=== PATIENT | female | born 1930 | race Caucasian/White ===

== ENCOUNTER 2017-09-05 12:30 | Outpatient (CLI) | payer MEDICARE, OTHER ==
[2017-09-05 13:24] LABS: #Basophils 0.1 thou/uL (0.0-0.2); #Eosinphils 0.2 thou/uL (0.0-0.7); #Lymphocytes 1.5 thou/uL (1.20-3.40); #Monocytes 0.5 thou/uL (0.11-0.59); #Neutrophils 3.2 thou/uL (1.40-6.50); %Basophils 1.2 % (0.0-1.0); %Eosinophils 3.9 % (0.0-10.0); %Lymphocytes 26.6 % (21.0-51.0); %Monocytes 8.7 % (0.0-10.0); Hematocrit 45.9 % (36.0-47.0); Red Blood Cell (RBC) Count 4.99 mill/uL (4.20-5.40); White Blood Cell (WBC) Count 5.4 thou/uL (4.8-10.8)
[2017-09-05 13:51] LABS: Anion Gap 14 mmol/L (10-20); BUN (Urea Nitrogen) 13 mg/dL (9.8-20.1); Calc. Creatinine Clearance 0 mL/min (70-130); Calcium 9.2 mg/dL (7.8-10.44); Carbon Dioxide 27 mmol/L (23-31); Chloride 102 mmol/L (98-107); Estimated GFR-MDRD 53
--- NOTE | 2017-09-05 15:29 | EKG ---
Test Reason : Blood Pressure : / mmHG Vent. Rate : 057 BPM Atrial Rate : 057 BPM P-R Int : 142 ms QRS Dur : 088 ms QT Int : 484 ms P-R-T Axes : 039 142 -38 degrees QTc Int : 471 ms Sinus bradycardia Right axis deviation T wave abnormality, consider inferior ischemia T wave abnormality, consider anterolateral ischemia Prolonged QT Abnormal ECG No previous ECGs available Confirmed by DR. Xuan BROOKS ([id number]) on 09/05/2017 3:29:39 PM Referred By: LOPEZ Confirmed By:DR. Xuan BROOKS
--- NOTE | 2017-09-05 15:51 | RAD ---
TWO VIEWS CHEST: 09/05/17 Preoperative chest radiograph. PA and lateral views of the chest is obtained. Marked cardiomegaly seen. the cardiothoracic ratio measures approximately 17.9/28.2 cm. The lungs are well aerated. Ectasia of the aorta is seen. IMPRESSION: Cardiomegaly. POS: [facility]
== END 2017-09-05 12:31 | disposition home or self-care (01) ==
LOC: LABBT 12:30
PROVIDERS: ATTEND Specialist
DX: Z01.818 Encounter for other preprocedural examination (principal); R59.0 Localized enlarged lymph nodes; I51.7 Cardiomegaly
CPT/HCPCS: 71020; 80048; 85025; 93005; 93010

== ENCOUNTER 2017-09-10 09:07 | Day surgery (SDC) | payer MEDICARE, OTHER ==
--- NOTE | 2017-09-04 21:17 | HP ---
HISTORY OF PRESENT ILLNESS: Lorena Martinez is an 87-year-old female presenting with left groin lymp hadenopathy about a 3 cm node. The patient denies any fever, night sweats or weight loss. 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 Zapata during catheterization. Plan is to excise th is lymphnode for biopsy as an outpatient, IV sedation, and local anesthesia. She is followed by Dr. Keita and has a history of abnormal nuclear medicine stress test, but echocardiogram at the Dr. Mumtaz palacio's office on 07/31/2017 noting this grade 1 diastolic dysfunction, LV, ejection fraction 60% to 65%, moderate right RV dilatation, mild tricuspid, mitral valve, aortic valve regurgitation. She mccarthy s a moderate size pericardial effusion without tamponade physiology. There is no change from previo us exam. ALLERGIES: None. TOBACCO: None. ALCOHOL: None. MEDICATIONS: Vitamin B12, aspirin 81 mg a day, Lasix 40 mg a day, losartan potassium 50 mg a day, m etoprolol 50 mg extended release daily, Aricept at bedtime, vitamin capsule orally. PAST SURGICAL HISTORY: Cataracts, foot surgery. SOCIAL HISTORY: The patient's daughter lives part-time with her, she is independently ambulatory. She does not drive. REVIEW OF SYSTEMS: Ten-point noncontributory. She denies ever having had a colonoscopy. She denie s any history of cardiac problems. PHYSICAL EXAMINATION: VITAL SIGNS: Weight 144 pounds, 60 inches tall, blood pressure 148/66, 56 heart rate, temperature 9 6.8 degrees. HEAD, EYES, EARS, NOSE AND THROAT: Unremarkable. LUNGS: Clear to auscultation. CARDIAC: Regular rate and rhythm without murmur or gallop. ABDOMEN: Soft, nontender, no lymphadenopathy. Neck, axilla, or right groin or left groin reveals a 3-1/2 cm firm node. This has not changed on standing Valsalva. ASSESSMENT AND PLAN: Left groin, no plan, excisional biopsy for pathology identification. She yoko es experiencing symptoms of weight loss, night sweats or fever and appetite has been fairly good. M obility is good.
[2017-09-05 13:52] VITALS: BMI 26.8
[2017-09-10] MEDS ORDERED: CEFAZOLIN/Water 2 GM/20 ML SYRINGE ONE (10:47)
[2017-09-10] MEDS ORDERED: Bupivacaine PF 0.5% 30 ML VIAL ONE (12:06)
[2017-09-10] MEDS ORDERED: Lidocaine 2% w/Epinephrine 1:200K 20 ML VIAL ONE (12:06)
[2017-09-10] MEDS ORDERED: Fentanyl 100 MCG/2 ML VIAL ONE (12:22)
[2017-09-10] MEDS ORDERED: Propofol 200 MG/20 ML VIAL ONE (12:30)
--- NOTE | 2017-09-10 14:49 | OP ---
PREOPERATIVE DIAGNOSIS: Left groin lymphadenopathy. POSTOPERATIVE DIAGNOSIS: Incarcerated left femoral hernia with omentum. SURGEON: Stephen Richmond M.D. ANESTHESIA: TIVA. Local 0.5% Marcaine, 30 mL mixed with 1% Xylocaine with epinephrine, 35 mL mixtu re used. PROCEDURE: Patient taken to the operating room where under intravenous sedation, groin, lower abdom en and thigh prepared with ChloraPrep, draped in routine fashion. Local anesthetic infiltrated into skin and subcutaneous tissue about the operative site. Incision made over the mass and carried adrian n through the skin and subcutaneous tissue and there was appreciated. This was incarcerated femoral hernia. This was dissected free and hernia sac identified, opened and redundant omentum excised wi th the cautery. Hernia sac closed, highly ligated with 0 Nurolon pursestring suture and to the stum p of the hernia sac, a hernia plug, PerFix light plug applied and secured with 0 Nurolon suture. Re duced into the space. Fascia approximated the pubis with interrupted sutures of 0 Nurolon. Good he mostasis obtained. Subcutaneous tissues approximated with 3-0 Monocryl, skin with subdermal 4-0 Mon ocryl and DermaGlue applied.
== END 2017-09-10 14:40 | disposition home or self-care (01) ==
LOC: SDC 09:07
PROVIDERS: ATTEND Specialist
PROC: 0YQ80ZZ Repair Left Femoral Region, Open Approach (ICD-10-PCS; principal; 2017-09-10)
DX: K41.30 Unilateral femoral hernia, with obstruction, without gangrene, not specified as recurrent (principal); I08.3 Combined rheumatic disorders of mitral, aortic and tricuspid valves; I31.3 Pericardial effusion (noninflammatory); Z79.82 Long term (current) use of aspirin; Z79.899 Other long term (current) drug therapy; Z98.49 Cataract extraction status, unspecified eye; Z98.890 Other specified postprocedural states
CPT/HCPCS: 49553; C1781; J2704; J3010; S0020

== ENCOUNTER 2017-10-27 09:15 | Emergency (ER) | payer MEDICARE, OTHER ==
--- NOTE | 2017-10-27 11:43 | RAD ---
TWO VIEWS OF THE RIGHT HIP: DATE: 10/27/17. COMPARISON: None. HISTORY: Low back pain and right hip pain/thigh pain. No reported history of trauma. FINDINGS: There is mild superior joint space narrowing involving the right hip. There is no displaced fracture or evidence of dislocation seen. IMPRESSION: No acute osseous abnormality. POS: [facility]
[2017-10-27 12:26] LABS: Hematocrit 42.7 % (36.0-47.0); Mean Platelet Volume 7.7 fL (7.4-10.4); Red Blood Cell (RBC) Count 4.86 mill/uL (4.20-5.40); White Blood Cell (WBC) Count 7.3 thou/uL (4.8-10.8)
[2017-10-27 12:38] LABS: ALT (SGPT) 13 U/L (8-55); AST (SGOT) 30 U/L (5-34); Alkaline Phosphatase 52 U/L (40-150); Anion Gap 16 mmol/L (10-20); BUN (Urea Nitrogen) 18 mg/dL (9.8-20.1); Calc. Creatinine Clearance 0 mL/min (70-130); Calcium 7.6 mg/dL (7.8-10.44); Carbon Dioxide 20 mmol/L (23-31); Chloride 98 mmol/L (98-107); Estimated GFR-MDRD 59; Globulin 3.2 g/dL (2.4-3.5); Protein, Total 6.5 g/dL (6.0-8.3)
[2017-10-27 12:55] LABS: Band 38 % (5-11); Metamyelocyte 11 % (0-0); Myelocyte 4 % (0-0); Neutrophil 37 % (42-75)
[2017-10-27 14:05] LABS: Bilirubin Small (Negative); Blood, Urine Trace (Negative); Glucose, Urine (Dipstick) Negative (Negative); Ketone, Urine 15 mg/dL (Negative); Nitrite Negative (Negative); Protein, Urine (Dipstick) 100 mg/dL (Neg-Trace)
[2017-10-27 14:13] LABS: Bacteria/HPF None Seen HPF (None Seen); Squamous Epithelial 0-3 HPF (0-3)
--- NOTE | 2017-10-27 14:17 | CT ---
CT ARTERIOGRAM CHEST WITH IV CONTRAST AND 3D MIP IMAGING CT ARTERIOGRAM ABDOMEN WITH IV CONTRAST AND 3D MIP IMAGING: HISTORY: Chest and back pain. FINDINGS: There is good contrast opacification of the aorta with normal branching of the great vessels. Scatte red arterial calcifications apparent. No evidence of dissection. Fusiform ectasia of the lower abdo gurwinder aorta is present without aneurysmal dilatation apparent. Visceral arteries are patent. Bibasilar parenchymal infiltrates include alveolar and interstitial components. Heart is enlarged wi th pericardial fluid apparent. Lobular cysts are present throughout the liver parenchyma. There are degenerative changes throughout the lumbar spine. IMPRESSION: 1. Atherosclerosis. No evidence of aortic dissection or aneurysm. 2. Dense bibasilar parenchymal lung infiltrates. Clinical correlation regarding other signs and sym ptoms of bibasilar pneumonitis is required. 3. Cardiomegaly with pleural effusion. POS: [facility]
[2017-10-27 14:30] LABS: Hyaline Casts/LPF 4-6 HYALINE CAST LPF (0-3 Hyaline); Transitional Epithelial 0-3 HPF (0-3)
[2017-10-27] MEDS ORDERED: ISOVUE-370 76%-LOCM 1 ML ONE (17:04)
--- NOTE | 2017-11-26 14:41 | EKG ---
Test Reason : Blood Pressure : / mmHG Vent. Rate : 073 BPM Atrial Rate : 073 BPM P-R Int : 134 ms QRS Dur : 088 ms QT Int : 464 ms P-R-T Axes : 048 160 -33 degrees QTc Int : 511 ms Normal sinus rhythm Possible Left atrial enlargement Right axis deviation Right ventricular hypertrophy T wave abnormality, consider inferior ischemia T wave abnormality, consider anterior ischemia Prolonged QT Abnormal ECG No changes FROM 06-FEB-2017 Confirmed by AMANDA HAMMOND, NGUYEN ([id number]), editor dictionary CHANDRA GRUBER ([id number]) on 11/26/2017 2:40:31 PM Referred By: Confirmed By:NGUYEN PATEL MD
== END 2017-10-27 15:20 | disposition home or self-care (01) ==
LOC: ERS 09:15
DX: N39.0 Urinary tract infection, site not specified (principal); G47.30 Sleep apnea, unspecified; I11.0 Hypertensive heart disease with heart failure; E78.5 Hyperlipidemia, unspecified; I50.9 Heart failure, unspecified; Z79.82 Long term (current) use of aspirin; Z79.899 Other long term (current) drug therapy
CPT/HCPCS: 51701; 71275; 80053; 81003; 81015; 85025; 93005; 94760; 96374; A4353; J0696

== ENCOUNTER 2017-12-02 15:08 | Outpatient (CLI) | payer MEDICARE, OTHER | END 2017-12-02 15:09 | disposition home or self-care (01) | LOC: BICRAD 15:08 | PROVIDERS: ATTEND Internal Medicine Cardiovascular Disease | DX: J84.10 Pulmonary fibrosis, unspecified (principal); I31.3 Pericardial effusion (noninflammatory); I50.9 Heart failure, unspecified | CPT/HCPCS: 71046 ==

== ENCOUNTER 2017-12-24 08:00 | Inpatient (IN) | payer MEDICARE, OTHER ==
[2017-12-24 08:27] LABS: #Monocytes 0.3 thou/uL (0.11-0.59); #Neutrophils 3.8 thou/uL (1.40-6.50); %Basophils 0.5 % (0.0-1.0); %Eosinophils 0.8 % (0.0-10.0); %Lymphocytes 18.7 % (21.0-51.0); Hemoglobin 13.2 g/dL (12.0-16.0); Mean Corpuscular Hemoglobin 28.3 pg (27.0-31.0); Mean Corpuscular Volume 88.3 fl (81.0-99.0); Mean Platelet Volume 8.2 fL (7.4-10.4); Platelet Count 194 thou/uL (130-400); RBC Distribution Width 16.4 % (11.5-14.5); Red Blood Cell (RBC) Count 4.67 mill/uL (4.20-5.40); White Blood Cell (WBC) Count 5.1 thou/uL (4.8-10.8)
--- NOTE | 2017-12-24 08:33 | RAD ---
1 VIEW CHEST: Date: 12/24/17 COMPARISON: None. HISTORY: Pain. FINDINGS: There is cardiomegaly and atherosclerosis of aorta. Pulmonary vessels are upper normal. There are bib asilar pleural and parenchymal changes. Adequate aeration of the upper lungs. No pneumothorax. IMPRESSION: 1. Cardiomegaly. 2. Bibasilar pleural and parenchymal changes. 3. Possible congestive heart failure. Correlate clinically. 4. Atherosclerosis. POS: [facility]
[2017-12-24 08:45] LABS: ALT (SGPT) 53 U/L (8-55); AST (SGOT) 46 U/L (5-34); Albumin 3.8 g/dL (3.4-4.8); Alkaline Phosphatase 78 U/L (40-150); Anion Gap 12 mmol/L (10-20); BUN (Urea Nitrogen) 13 mg/dL (9.8-20.1); Bilirubin, Total 1.1 mg/dL (0.2-1.2); CK (CPK) 45 U/L (29-168); Calc. Creatinine Clearance 0 mL/min (70-130); Calcium 9.1 mg/dL (7.8-10.44); Carbon Dioxide 23 mmol/L (23-31); Chloride 107 mmol/L (98-107); Estimated GFR-MDRD 63; Globulin 3.5 g/dL (2.4-3.5); Glucose 164 mg/dL (83-110); Potassium 3.5 mmol/L (3.5-5.1); Protein, Total 7.3 g/dL (6.0-8.3); Sodium 138 mmol/L (136-145)
[2017-12-24 08:50] LABS: CKMB 2.9 ng/mL (0-6.6)
--- NOTE | 2017-12-24 08:57 | CT ---
CT BRAIN WITHOUT CONTRAST: Date: 12/24/17 HISTORY: Altered mental status. FINDINGS: Comparison made with exam of 02/13/17. Changes of cortical atrophy, chronic small vessel ischemic disease, and old lacunar infarction in the brainstem are again seen. The soft tissue density in the region of the right cavernous sinus which m ay either represent a mass or aneurysm is stable. Carotid atherosclerosis again noted. No evidence of acute infarct, hemorrhage, midline shift, or abnormal extra-axial fluid collections se en. The ventricular size is appropriate and the basilar cisterns are patent. The bony calvarium is in tact. There is mucosal disease in the left maxillary sinus. IMPRESSION: 1. Stable intracranial findings without evidence of acute intracranial process. 2. 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 This is stable since 02/13/17. E valuation with MRI (with and without IV contrast) would be helpful. 3. Cortical atrophy. 4. Chronic small vessel ischemic disease. 5. 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 POS: [facility]
--- NOTE | 2017-12-24 10:59 | CT ---
CT ANGIOGRAM OF THE CHEST WITH IV CONTRAST AND 3D POSTPROCESSING CT ANGIOGRAM OF THE ABDOMEN WITH IV CONTRAST AND 3D POSTPROCESSING: Date: 12/24/17 HISTORY: Right-sided weakness, upper extremity greater than lower extremity. Concern for aortic dissection. FINDINGS: Comparison made with exam dated 11/06/17. The thoracoabdominal aorta is well opacified without evidence of aneurysm or dissection. Ectasia of t he aorta is again seen. There is good flow in the celiac axis, SMA, ANTHONY, and both renal arteries. The pulmonary arterial vasculature is well opacified without filling defects to suggest pulmonary emboli sm. Cardiomegaly and pericardial effusions are redemonstrated. Bibasilar infiltrates are again seen. No free air or free fluid is seen in the abdomen. Cysts in the liver and right kidney are again seen. There are degenerative changes in the spine. IMPRESSION: 1. No evidence of aortic dissection or pulmonary embolism. 2. Cardiomegaly with pericardial effusion. 3. Bibasilar parenchymal lung infiltrates. 4. Liver and right renal cysts. POS: [facility]
[2017-12-24] MEDS ORDERED: Enoxaparin Sodium 60 MG/0.6 ML SYRINGE ONE (11:23)
[2017-12-24] MEDS ORDERED: Senokot 8.6 MG TAB PO PRN (12:37)
[2017-12-24] MEDS ORDERED: Guaifenesin DM 100-10/5 ML UDCUP PO PRN (12:37)
[2017-12-24] MEDS ORDERED: Acetaminophen 325 MG TAB PO PRN (12:37)
[2017-12-24 12:49] LABS: Troponin I 2.052 ng/mL (< 0.028)
[2017-12-24 12:53] LABS: EliA RAS New Method **** NEW METHOD ****
[2017-12-24 13:39] LABS: Syphilis Antibody Nonreactive (Nonreactive); Syphilis Antibody Index 0.12 S/CO (<1.00 Non-Reactive)
--- NOTE | 2017-12-24 14:34 | HP ---
REASON FOR ADMISSION: Right hemiparesis, non-ST elevation LA. HISTORY OF PRESENTING ILLNESS: The patient gives history of right upper extremity weakness, which started out 3 days back. This has been progressively getting worse. From last night, her daughter was with her. She noticed that she could not hold her coffee cup this morning. She was also wobbly while walking. She could not put spoon in her cup to mix her sugar and cream. They thought she was having a stroke and EMS was summoned and brought here. The patient was a stroke alert in the ER. Incidentally, her lab revealed a troponin of 2.0 and a CK-MB of 2.9. She has no complaints of chest pain, palpitations, PND or orthopnea. She normally ambulates using a walker inside the house. She has regular followups with Dr. Keita and had one 2 weeks back as well. She has been progressively putting on fluid in her legs and was advised to take double the dose of her Lasix from last [address] Keita. The family is not aware if she has had any cardiac workup including a stress test or angiogram. She has been following up with Dr. Keita from last one year. PAST MEDICAL AND SURGICAL HISTORY: Hypertension; dyslipidemia; sleep apnea; history of carotid aneurysm, diagnosed in 04/2017 via angiogram, done by Dr. Adeel Moreno. This showed a large right internal carotid artery terminus region aneurysm, which measures approximately 12 mm along its greatest length. She has not had further follow up with Dr. Zapata since then. She has had history of pericardial effusion in the past, hernia repair and dementia. CURRENT MEDICATIONS: Patient is on aspirin 81 mg p.o. daily, vitamin B12 5000 mcg p.o. daily, donepezil 5 mg p.o. daily, Lasix 20 mg daily, losartan 50 mg daily, melatonin 3 mg p.o. at bedtime, Lopressor 50 mg, Toprol-XL 50 mg p.o. daily and fish oil 1 capsule daily. ALLERGIES: No known drug allergies. PERSONAL HISTORY: Does not abuse alcohol or drugs. No history of smoking. The patient lives by herself and her daughter stays with her four nights in a week. FAMILY HISTORY: Mother of leukemia at the age of 65 years. Father in his 80s and has had history of LA. REVIEW OF SYSTEMS: The following complete review of systems was negative, unless otherwise mentioned in the HPI or below: Constitutional: Weight loss or gain, ability to conduct usual activities. Skin: Rash, itching. Eyes: Double vision, pain. ENT/Mouth: Nose bleeding, neck stiffness, pain, tenderness. Cardiovascular: Palpitations, dyspnea on exertion, orthopnea. Respiratory: Shortness of breath, wheezing, cough, hemoptysis, fever or night sweats. Gastrointestinal: Poor appetite, abdominal pain, heartburn, nausea, vomiting, constipation, or diarrhea. Genitourinary: Urgency, frequency, dysuria, nocturia. Musculoskeletal: Pain, swelling. Neurologic/Psychiatric: Anxiety, depression. Allergy/Immunologic: Skin rash, bleeding tendency. PHYSICAL EXAMINATION: GENERAL: The patient is an 87-year-old female who is currently not in any acute distress. VITAL SIGNS: Blood pressure 186/70, pulse 60 per minute, respiratory rate 20 per minute, temperature 98.5 degrees Fahrenheit and saturating 92% on room air. NECK: Supple. No elevated JVD. HEENT: Eyes; extraocular muscles intact. Pupils reacting to light. Oral cavity; mucous membranes are moist. No exudates or congestion. CARDIOVASCULAR SYSTEM: S1 and S2 heard. Regular rhythm. RESPIRATORY SYSTEM: Air entry 1+ bilateral. Scattered rhonchi plus bilateral. ABDOMEN: Soft, bowel sounds heard. No tenderness, rigidity or guarding. EXTREMITIES: There is 1+ peripheral edema, no calf tenderness. VASCULAR SYSTEM: Peripheral pulses 1+ bilateral. No ischemic ulcerations or gangrene. CENTRAL NERVOUS SYSTEM: Cranial nerves are grossly intact. Patient is alert, awake and oriented x3. Motor system strength is 4/5 in right upper and lower extremity when compared to left. The patient is right handed. The patient also has some ataxia with pronator drift in her right upper extremity. Babinski is downgoing. Reflexes are 2+ bilateral. Gait was not tested. PSYCHIATRIC SYSTEM: The patient is a bit anxious, otherwise no hallucinations or delusions. LABORATORY AND X-RAY FINDINGS: Troponin I is 2.0. CK-MB 2.9. CT brain without contrast done shows no acute intracranial process. There is a question of mass versus aneurysm in the region of the right cavernous sinus, cortical atrophy and chronic small vessel ischemic changes seen and old lacunar infarct in the brain stem. CT dissection protocol done shows no evidence of dissection or pulmonary embolism. There was cardiomegaly with pericardial effusion. Chest x-ray done shows cardiomegaly with bibasilar pleural and parenchymal changes. EKG done shows sinus rhythm at 61 beats per minute. There are T inversions seen in anterolateral and inferior wall leads. This is unchanged when compared to prior EKG done in 10/2017. CLINICAL IMPRESSION AND PLAN: The patient will be admitted to stroke unit/ telemetry for possible right hemiparesis with ataxia. Patient also has known history of carotid aneurysm on the right side measuring up to 1 cm and has not had any follow up with Dr. Zapata since being diagnosed in 04/2017. She also has a troponin of 2 and likely non-ST elevation myocardial infarction. It is unclear if she has had a stress test in the past. As patient is on aspirin, we will place her on Plavix for now and BNP will be obtained as well. Patient has a known history of chronic pulmonary fibrosis based on CT scan done in 04/2016. She has had follow ups with Dr. Ibanez for the same. She will be on nitro paste half-inch q.8 hourly. A small dose of Crestor will be added. We will continue her Cozaar as before and a small dose of Lopressor at 25 mg twice daily. We will not give her full dose Lovenox in view of her current symptoms of CVA so as to not have a francisca-infarct bleed. We will consult Dr. Sheyla Mott for Neurology and Dr. Keita for Cardiology. MRI without contrast will be obtained and a CT angio of the neck and brain will be obtained as well. If needed, we will consult Dr. Zapata for intervention Neurosurgery. We will continue to closely monitor her on the stroke unit. I have discussed code status with her and she would like to be a FULL CODE for now. MTDD
[2017-12-24 16:06] VITALS: BMI 27.0
[2017-12-24 16:41] LABS: Critical Call Chem Troponin I RESULT DECREASING; Troponin I 1.806 ng/mL (< 0.028)
[2017-12-24] MEDS ORDERED: ISOVUE-370 76%-LOCM 1 ML ONE (16:53)
[2017-12-24] MEDS: Nitroglycerin 2% Ointment 1 INCH/1 GM Packet TOP SCH ×2 (18:23→21:11)
--- NOTE | 2017-12-24 19:27 | CON ---
DATE OF CONSULTATION: 12/24/2017 INDICATION FOR CONSULTATION: This is an 87-year-old female with abnormal cardiac enzymes with a hist ory of congestive heart failure, pulmonary fibrosis, and pericardial effusion. We were asked to see her due to the abnormal cardiac enzymes. HISTORY OF PRESENT ILLNESS: She is a very pleasant 87-year-old female, who has been complaining of s ome right upper extremity weakness over the last several days which has become worse and daughter not iced that she was unable to even be able to eat or mixing picker tender a coffee cup and she had been somewhat sha ky. She had called the daughter at home when she was not feeling very well. The daughter was concer bernardino and felt perhaps she was having a CVA and brought her to the emergency room. Since being in the emergency room, her cardiac enzymes were evaluated and she was found to have abnormal cardiac enzymes with a troponin I originally which was 2.05, at 8 o'clock this morning it was repeated and was found to be the same thing 2.05, and about 4 o'clock this afternoon it is decreased down to 1.8. Her MB w as 2.9. Her BNP was significantly elevated at 7155. 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 She had a recent echocardiogram according to the patient's family about 2 weeks in the office and I will try to find that echocardiogram. I did not see one in the hospital records. She denied any chest pain. Since being in the hospital, her right arm has improved. When I see her at this time, s he is actually eating from her hospital tray and using the right hand. She denies any chest pain. S he has had a CT scan I believe since being admitted here and there is no indication that she has had any new findings. I believe the patient is being sent down for an MRI. This was acute on the CT sca n, but she did have some what appeared to be a mass versus an aneurysm in the right cavernous sinus w hich has been stable. She has had some atrophy. She has small vessel disease and she has had an old lacunar infarct, but there were no apparent acute findings on the evaluation. PAST MEDICAL HISTORY: Significant for history of carotid aneurysm on the right side. There has been no intervention performed. She has a pericardial effusion. She has hypertension, sleep apnea, and dyslipidemia. She has a history of peptic ulcer disease, osteoporosis. ALLERGIES: None. MEDICATIONS PRIOR TO ADMISSION: Included vitamins, aspirin 81 mg a day, furosemide 40 mg b.i.d., chaim nazepam, donepezil 5 mg 1 q.p.m., fish oil, and vitamin B12. She is also taking losartan 50 mg a day , Lopressor 50 mg daily. SOCIAL HISTORY: She has no history of alcohol or tobacco abuse. She lives by herself, but her daugh keenan lives close by and takes support on daily basis and stays with her several times during the week. FAMILY HISTORY: Noncontributory for any early heart disease. Her father did have a myocardial infar ction in his 80s. Her mother I believe had some type of leukemia. REVIEW OF SYSTEMS: A 12-point review of systems is unremarkable except for the right upper extremity weakness and recent seemingly some confusion, but is minimal. The patient still lives by herself. PHYSICAL EXAMINATION: GENERAL: Reveals an elderly female who is sitting on the side of the bed. She is eating from her ho spital tray. VITAL SIGNS: Her blood pressure is 189/86, heart rate is 54. She is afebrile, respiratory rate is 1 8. HEENT: Reveals the head to be normocephalic and atraumatic. Carotid pulses are present. She has no significant bruits. CHEST: Has bibasilar at least in the lower 1/3rd of the lung rosas, very coarse dry rales which are compatible with her pulmonary fibrosis. CARDIOVASCULAR: Exam reveals a regular rate and rhythm at this time. I did not hear any significant murmurs, heaves, thrills, bruits, or rubs. ABDOMEN: Soft and nontender. Positive bowel sounds are present. EXTREMITIES: Showed no clubbing, cyanosis, or edema. Pedal pulses are present. NEUROLOGIC: The patient does have some right upper extremity weakness, but is still able to grasp th e fork and she has enough stability to get it to her mouth and features of using her right hand. SKIN: Warm and dry. LABORATORY DATA: As noted above shows some slight abnormalities with the CPK-MB. If she has had [place] e type of neurological event, this may be the reason why this is elevated. IMPRESSION: 1. Abnormal cardiac enzymes which could possibly be due to a non-ST segment elevation myocardial inf arction, but with negative MB. This may be due to neurological event with elevation of the troponin I slightly. She has normal renal function. She does have elevation, which would not cause the tropo carloz I to be elevated. 2. History of some congestive heart failure type symptoms. She does have some shortness of breath i n the past, but denies any at this time. Her BNP is elevated over 7000. This may be due to some jenelle stolic dysfunction and also with her pulmonary fibrosis. She does not appear to be significantly vol ume overloaded at this time. 3. Pulmonary fibrosis for which she is being followed by her primary care physician. I believe she may have seen a client care manager also in the past. 4. Elevated blood sugars. The patient may be a diabetic. I do not know whether or not this has bee n evaluated or not, but previous evaluation of the other blood sugars in the past, these have not bee n significantly elevated and it is unlikely that she is a diabetic although she is being given medica tions. There is no indication previously that she had diabetes. 5. Hypertension. Blood pressure is significantly elevated at this time. We will need to initiate m edical treatment for the hypertension. Since being in the hospital, she has been placed back on her losartan and metoprolol as well as nitroglycerin paste. We will continue to monitor this very carefu lly and if necessary, would increase the ARBs as well as the beta blockers if tolerated. We could al so add Norvasc. We would not be able to increase the beta blockers much further due to the heart rat e being in the 50s with sinus bradycardia. At this time, we will continue to trend the enzymes, but would also agree with an MRI for evaluation of possible small cerebrovascular accident which would be an etiology of the elevated troponin I. She denies any chest pain. The EKG is not readily availabl e at this time. We will need to evaluate that once can review the EKGs. Otherwise, she remains stab le from a cardiac standpoint at this time.
[2017-12-24] MEDS: Melatonin 3 MG TAB PO SCH (21:10)
[2017-12-24] MEDS: Rosuvastatin 10 MG TAB PO SCH (21:10)
[2017-12-24] MEDS: Donepezil HCl 5 MG TAB PO SCH (21:10)
[2017-12-24] MEDS: Famotidine 20 MG TAB PO SCH (21:10)
[2017-12-24] MEDS: Metoprolol Tartrate 25 MG TAB PO SCH (21:10)
--- NOTE | 2017-12-24 21:52 | MRI ---
NONCONTRAST BRAIN MRI 12/24/17 CLINICAL HISTORY: Stroke, right sided weakness. Reference made to preceding head CT same date. FINDINGS: Punctate restricted diffusion of the left centrum semiovale is present. There is also punctate restri cted diffusion of the left cerebellar hemisphere. There is mild chronic microvascular ischemic diseas e, not atypical for patient's age. Focal area of encephalomalacia seen within the left occipital lobe . Parenchymal volume loss is also present. Ventricular system is age appropriate in size. A small non specific nidus of hemosiderin deposition seen at the right cerebellar hemisphere in addition to punct ate areas of susceptibility involving the bilateral cerebral hemispheres. A prominent sized flow void is seen at the expected region of the right carotid siphon. There is scattered paranasal sinus mucos al thickening most pronounced within the left maxillary sinus. Bilateral mastoid effusions are presen t. There is absence of [place] intraocular lens. IMPRESSION: 1. Punctate supratentorial and infratentorial recent infarctions. 2. Scattered punctate areas of hemosiderin deposition which given patient's age statistically re flects sequela from amyloid angiopathy. Correlate clinically. 3. Prominent flow void at the expected confines of the carotid siphon. This may relate to a fusi form aneurysm. As clinically indicated, followup with dedicated CTA or MRA [place] may be pe rformed. 4. Prominent scattered paranasal sinus opacification and bilateral mastoid effusions. POS: [facility]
--- NOTE | 2017-12-25 00:22 | CON ---
DATE OF CONSULTATION: 12/24/2017 REFERRING PHYSICIAN: Dr. Pattie Richard. REASON FOR CONSULTATION: Right-sided weakness. HISTORY OF PRESENT ILLNESS: Ms. Martinez is a pleasant 87-year-old female who has been consulted for evaluation of right-sided weakness. History is obtained from patient and her daughter who was present at bedside. Patient reports that she has been feeling weak in her right arm over the past 3 days that has gradually gotten worse. Daughter reports that this morning, she went to go check on her and noticed that she was having difficulty with coordinating with her right arm. She was having difficulty with holding objects in her right hand. When she tried to walk, she was wobbly and unsteady on her feet. She normally walks independently at home without any support and when she is outside, she may use cane for support; however, today she had to use walker to help with her balance and walking. She lives independently and able to carry out her activities of daily living without any difficulty. Currently, patient reports that her symptoms are somewhat better since being admitted to the hospital. She denies any headache, chest pain, palpitation, numbness, tingling , or weakness. PAST MEDICAL HISTORY: Significant for hypertension, dyslipidemia, sleep apnea , history of carotid aneurysm. PAST SURGICAL HISTORY: Significant for hernia repair. SOCIAL HISTORY: She lives alone. She denies smoking, alcohol use, or illicit drug use. CURRENT MEDICATIONS: Please review MAR. ALLERGIES: No known drug allergies. FAMILY HISTORY: Noncontributory. REVIEW OF SYSTEMS: As mentioned in the HPI, otherwise negative. PHYSICAL EXAMINATION: VITAL SIGNS: Blood pressure 189/86, pulse of 54, temperature of 98.3, respirations of 18, O2 sats of 95% on 3 liter nasal cannula. GENERAL: Well-developed, well-nourished female resting in bed in no apparent distress. RESPIRATORY: Clear to auscultation bilaterally. CARDIOVASCULAR: Regular rate and rhythm. NEUROLOGIC: Mental status: Patient is awake, alert, oriented x3. Speech and language: Fluent speech. Cranial nerves: Pupils are 3 mm and reactive. Visual rosas are intact. External muscles are intact. No nystagmus noted. Face appears symmetric. Tongue and uvula are midline. Motor exam showed normal tone and bulk with 5/5 strength in both upper and lower extremities. Sensory: Sensation appears intact. Deep tendon reflexes 1-2+ reflexes in both upper and lower extremities. Coordination: There is a mild dysmetria noted on [id number] on the right upper extremity. LABORATORY DATA: Reviewed, which included CBC, CMP, troponin, BNP, CK-MB, and RPR, which is significant for glucose of 164, AST of 46, troponin of 1.806. BNP of 7155, otherwise unremarkable. IMAGING STUDIES: CT head without contrast was reviewed, which showed no acute intracranial abnormality. According to the report on the CT scan by radiologist , it was noted that there was mass versus aneurysm in the region of the right cavernous sinus based on prior records, patient had cerebral arteriogram done in [address] 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 IMPRESSION: 1. Right-sided weakness. 2. Ataxia. 3. Malignant hypertension. ASSESSMENT AND PLAN: Ms. Martinez is a pleasant 87-year-old female with history of high blood pressure, diabetes, and coronary artery disease presented with the right upper extremity weakness along the difficulty with gait imbalance. On exam, she has dysmetria noted on the right upper extremity, which likely suggest posterior circulation stroke. At this time, I will recommend obtaining MRI brain without contrast for further evaluation. According to the radiologist, CT scan showed mass versus aneurysm on the right cavernous sinus. Given the patient had cerebral arteriogram done by Dr. Zapata in 2016, this is likely an aneurysm. I do not see need to obtain a CT angiogram of the head and neck at this time. If the MRI of brain does show an acute ischemic event involving the posterior circulation, then switching her from aspirin to Plavix for secondary stroke prevention can be done. If the MRI is negative, the patient can be continued on aspirin for secondary stroke prevention. Continue supportive care. Thank you for consultation. LATANYA
[2017-12-25 05:24] LABS: #Eosinphils 0.1 thou/uL (0.0-0.7); #Lymphocytes 0.8 thou/uL (1.20-3.40); #Monocytes 0.3 thou/uL (0.11-0.59); #Neutrophils 2.4 thou/uL (1.40-6.50); %Basophils 1.1 % (0.0-1.0); %Lymphocytes 20.9 % (21.0-51.0); %Monocytes 6.9 % (0.0-10.0); %Neutrophils 67.1 % (42.0-75.0); Hemoglobin 12.2 g/dL (12.0-16.0); Mean Corpuscular HGB CONC 32.5 g/dL (32.0-36.0); Mean Corpuscular Hemoglobin 28.2 pg (27.0-31.0); Mean Corpuscular Volume 86.7 fl (81.0-99.0); Mean Platelet Volume 8.3 fL (7.4-10.4); Platelet Count 153 thou/uL (130-400); RBC Distribution Width 16.3 % (11.5-14.5); Red Blood Cell (RBC) Count 4.31 mill/uL (4.20-5.40); White Blood Cell (WBC) Count 3.6 thou/uL (4.8-10.8)
[2017-12-25 05:47] LABS: Anion Gap 11 mmol/L (10-20); BUN (Urea Nitrogen) 10 mg/dL (9.8-20.1); Calc. Creatinine Clearance 55 mL/min (70-130); Calcium 8.5 mg/dL (7.8-10.44); Carbon Dioxide 22 mmol/L (23-31); Cardiac Risk 6.3 (Less than 4.5); Chloride 109 mmol/L (98-107); Cholesterol 150 mg/dl (< 200 Desired); Estimated GFR-MDRD 75; Glucose 85 mg/dL (83-110); HDL Cholesterol 24 mg/dL (>60 Neg Risk); LDL Cholesterol, Calculated 106 mg/dL; Sodium 139 mmol/L (136-145); Triglycerides 98 mg/dL (Less than 150)
[2017-12-25] MEDS: Nitroglycerin 2% Ointment 1 INCH/1 GM Packet TOP SCH (06:08)
[2017-12-25] MEDS ORDERED: Aspirin 325 MG TAB PO SCH (09:00)
[2017-12-25] MEDS ORDERED: Donepezil HCl 5 MG TAB PO SCH (09:00)
[2017-12-25] MEDS: Cyanocobalamin (Vitamin B-12) 1,000 MCG TAB PO SCH (10:20)
[2017-12-25] MEDS: Potassium Chloride 20 MEQ TAB PO SCH ×3 (10:21→21:51)
[2017-12-25] MEDS: Losartan 25 MG TAB PO SCH (10:22)
[2017-12-25] MEDS: Enoxaparin Sodium 40 MG/0.4 ML SYRINGE SC SCH (10:23)
[2017-12-25] MEDS: Famotidine 20 MG TAB PO SCH ×2 (10:23→21:51)
[2017-12-25] MEDS: Clopidogrel Bisulfate 75 MG TAB PO SCH (10:24)
[2017-12-25] MEDS: Metoprolol Tartrate 25 MG TAB PO SCH ×2 (10:24→21:51)
--- NOTE | 2017-12-25 11:23 | PDOC.PN ---
- Subjective Encounter Start Date: 12/25/17 Encounter Start Time: 09:00 Subjective: feels better, slept well -: no new complaints -: no chest pain/palpitations - Objective MAR Reviewed: Yes Vital Signs & Weight: Vital Signs (12 hours) Temp Pulse Resp BP Pulse Ox 12/25/17 07:21 98.0 F 60 20 144/66 H 89 L 12/25/17 06:12 97.4 F L 57 L 18 144/65 H 90 L 12/24/17 23:51 92 L Weight Admit Weight 143 lb Weight 143 lb I&O: 12/24/17 12/25/17 12/26/17 06:59 06:59 06:59 Intake Total 0 Balance 0 Result Diagrams: 12/25/17 04:47 12/25/17 04:47 Phys Exam - Physical Examination HEENT: PERRLA, moist MMs Neck: no JVD, supple Respiratory: no wheezing, no rales Cardiovascular: RRR, no significant murmur Gastrointestinal: soft, non-tender, positive bowel sounds Musculoskeletal: pulses present, edema present Neurological: moves all 4 limbs ataxia of right UE Psychiatric: A&O x 3 Dx/Plan (1) NSTEMI (non-ST elevated myocardial infarction) Code(s): I21.4 - NON-ST ELEVATION (NSTEMI) MYOCARDIAL INFARCTION Status: Acute (2) CHF (congestive heart failure) Code(s): I50.9 - HEART FAILURE, UNSPECIFIED Status: Acute Qualifiers: Heart failure type: diastolic Heart failure chronicity: acute Qualified Code(s): I50.31 - Acute diastolic (congestive) heart failure (3) CVA (cerebral vascular accident) Code(s): I63.9 - CEREBRAL INFARCTION, UNSPECIFIED Status: Acute Qualifiers: CVA mechanism: unspecified Qualified Code(s): I63.9 - Cerebral infarction, unspecified (4) Interstitial lung disease Code(s): J84.9 - INTERSTITIAL PULMONARY DISEASE, UNSPECIFIED Status: Chronic (5) Carotid aneurysm, right Code(s): I72.0 - ANEURYSM OF CAROTID ARTERY Status: Chronic (6) HTN (hypertension) Code(s): I10 - ESSENTIAL (PRIMARY) HYPERTENSION Status: Chronic Qualifiers: Hypertension type: essential hypertension Qualified Code(s): I10 - Essential (primary) hypertension - Plan has amb 140 ft with PT -: gentle iv diuresis -: dc nitropaste, is on plavix, crestor, lopressor and cozaar -: watch for hypotension -: replace potassium * .
[2017-12-25 11:36] LABS: CCP IgG Antibody 1.3 EliAU/mL (<7 Negative)
--- NOTE | 2017-12-25 12:51 | PDOC.CTH ---
Cardiology Progress Note - Subjective No new issues. - Objective Vital Signs Temp Pulse Pulse Pulse Resp BP BP 12/25/17 11:00 98.1 F 50 L 20 12/25/17 08:45 54 L 55 L 182/82 H 178/77 H 12/25/17 07:21 98.0 F 60 20 12/25/17 06:12 97.4 F L 57 L 18 BP Pulse Ox 12/25/17 11:00 172/82 H 91 L 12/25/17 08:45 12/25/17 07:21 144/66 H 89 L 12/25/17 06:12 144/65 H 90 L Admit Weight 143 lb Weight 143 lb 12/24/17 12/25/17 12/26/17 06:59 06:59 06:59 Intake Total 0 Balance 0 - Physical Examination General/Neuro: alert & oriented x3, NAD Neck: no JVD present Lungs: unlabored respirations, other: (Dimished breath sounds. ) Heart: RRR Abdomen: NT/ND Extremities: + edema B (none) - Telemetry Telemetry Rhythm: NSR - Labs Result Diagrams: 12/25/17 04:47 12/25/17 04:47 Troponin/CKMB CK-MB (CK-2) 2.9 ng/mL (0-6.6) 12/24/17 08:15 Troponin I 1.806 ng/mL (< 0.028) H* 12/24/17 16:02 - Assessment/Plan 1. Acute CVA 2. Pleural effusion 3. Pulmonary fibrosis. PLAN: - Echo pending. - May need LINQ if thought to have an embolic CVA. - Will discuss with neurology. - Albina Salinas
[2017-12-25] MEDS: Furosemide 20 MG/2 ML VIAL SLOW IVP SCH (15:18)
[2017-12-25] MEDS: Donepezil HCl 5 MG TAB PO SCH (21:51)
[2017-12-25] MEDS: Rosuvastatin 10 MG TAB PO SCH (21:51)
[2017-12-25] MEDS: Melatonin 3 MG TAB PO SCH (21:55)
[2017-12-26] MEDS: Potassium Chloride 20 MEQ TAB PO SCH (02:25)
[2017-12-26] MEDS ORDERED: Potassium Chloride 20 MEQ TAB PO SCH (04:00)
[2017-12-26] MEDS: Furosemide 20 MG/2 ML VIAL SLOW IVP SCH (05:43)
[2017-12-26 07:21] LABS: ANA Symphony (Qualitative) Equivocal - See Note (Negative); CENP IgG Antibody 0.8 EliAU/mL (<7 Negative); Jo-1 IgG Antibody Less than 0.3 EliAU/mL (<7 Negative); RNP70 IgG Antibody Less than 0.3 EliAU/mL (<7 Negative); SSB/La IgG Antibody Less than 0.3 EliAU/mL (<7 Negative); Scleroderma-70 IgG Antibody Less than 0.6 EliAU/mL (<7 Negative); Smith D IgG Antibody 1.4 EliAU/mL (<7 Negative); U1RNP IgG Antibody 1.2 EliAU/mL (<5 Negative); dsDNA IgG Antibody 0.8 IU/mL (<10 Negative)
[2017-12-26] MEDS ORDERED: Furosemide 40 MG TAB PO SCH (10:00)
[2017-12-26 10:38] LABS: #Monocytes 0.4 thou/uL (0.11-0.59); %Basophils 0.6 % (0.0-1.0); %Eosinophils 0.7 % (0.0-10.0); %Lymphocytes 18.1 % (21.0-51.0); %Monocytes 7.8 % (0.0-10.0); %Neutrophils 72.9 % (42.0-75.0); Hemoglobin 14.5 g/dL (12.0-16.0); Mean Corpuscular HGB CONC 31.4 g/dL (32.0-36.0); Mean Corpuscular Hemoglobin 28.5 pg (27.0-31.0); Mean Corpuscular Volume 90.6 fl (81.0-99.0); Platelet Count 192 thou/uL (130-400); RBC Distribution Width 16.9 % (11.5-14.5); Red Blood Cell (RBC) Count 5.09 mill/uL (4.20-5.40); White Blood Cell (WBC) Count 5.5 thou/uL (4.8-10.8)
[2017-12-26] MEDS: Losartan 25 MG TAB PO SCH (10:41)
[2017-12-26] MEDS: Cyanocobalamin (Vitamin B-12) 1,000 MCG TAB PO SCH (10:41)
[2017-12-26] MEDS: Famotidine 20 MG TAB PO SCH ×2 (10:41→20:07)
[2017-12-26] MEDS: Metoprolol Tartrate 25 MG TAB PO SCH ×2 (10:41→20:07)
[2017-12-26] MEDS: Clopidogrel Bisulfate 75 MG TAB PO SCH (10:41)
[2017-12-26] MEDS: Enoxaparin Sodium 40 MG/0.4 ML SYRINGE SC SCH (10:42)
--- NOTE | 2017-12-26 11:07 | PDOC.PN ---
- Subjective Encounter Start Date: 12/26/17 Encounter Start Time: 10:00 Subjective: awake, not fully oriented -: is sitting in chair - Objective MAR Reviewed: Yes Vital Signs & Weight: Vital Signs (12 hours) Temp Pulse Resp BP Pulse Ox 12/26/17 03:08 96.8 F L 92 24 H 185/84 H 82 L 12/25/17 23:33 95.8 F L 61 28 H 190/93 H 90 L Weight Admit Weight 143 lb Weight 143 lb I&O: 12/25/17 12/26/17 12/27/17 06:59 06:59 06:59 Intake Total 0 120 Balance 0 120 Result Diagrams: 12/26/17 10:23 12/26/17 09:58 Phys Exam - Physical Examination HEENT: PERRLA, moist MMs Neck: no JVD, supple Respiratory: no wheezing, no rales Cardiovascular: RRR, no significant murmur rhonchi+ Gastrointestinal: soft, non-tender, positive bowel sounds Musculoskeletal: no edema, pulses present Neurological: non-focal, moves all 4 limbs Dx/Plan (1) NSTEMI (non-ST elevated myocardial infarction) Code(s): I21.4 - NON-ST ELEVATION (NSTEMI) MYOCARDIAL INFARCTION Status: Acute (2) CHF (congestive heart failure) Code(s): I50.9 - HEART FAILURE, UNSPECIFIED Status: Acute Qualifiers: Heart failure type: diastolic Heart failure chronicity: acute Qualified Code(s): I50.31 - Acute diastolic (congestive) heart failure (3) CVA (cerebral vascular accident) Code(s): I63.9 - CEREBRAL INFARCTION, UNSPECIFIED Status: Acute Qualifiers: CVA mechanism: unspecified Qualified Code(s): I63.9 - Cerebral infarction, unspecified (4) Interstitial lung disease Code(s): J84.9 - INTERSTITIAL PULMONARY DISEASE, UNSPECIFIED Status: Chronic (5) Carotid aneurysm, right Code(s): I72.0 - ANEURYSM OF CAROTID ARTERY Status: Chronic (6) HTN (hypertension) Code(s): I10 - ESSENTIAL (PRIMARY) HYPERTENSION Status: Chronic Qualifiers: Hypertension type: essential hypertension Qualified Code(s): I10 - Essential (primary) hypertension (7) Dementia Code(s): F03.90 - UNSPECIFIED DEMENTIA WITHOUT BEHAVIORAL DISTURBANCE Status: Chronic Qualifiers: Dementia type: unspecified type Dementia behavioral disturbance: with behavioral disturbance Qualified Code(s): F03.91 - Unspecified dementia with behavioral disturbance - Plan is confused this am, responds to verbal stimuli -: d/w daughter about current plan and lab/imaging studies -: to continue lojack and jose, d/w , will see her in 2 weeks -: D/w , his office will schedule outpt f/u for carotid aneurysm -: likely home with daughter if CTA shows size of aneursym same * . Daughter not interested in sending her to snf/swing bed as of now. D/w her PCP and gave a update Review of Systems - Medications/Allergies Allergies/Adverse Reactions: Allergies Allergy/AdvReac Type Severity Reaction Status Date / Time No Known Allergies Allergy Verified 09/05/17 13:06 Medications: Current Medications Acetaminophen (Tylenol) 650 mg PO Q4H PRN PRN Reason: Headache/Fever or Pain Albuterol/Ipratropium (Duoneb) 3 ml NEB [id number] [facility] Last Admin: 12/26/17 07:04 Dose: Not Given Aspirin (Aspirin Chewable) 81 mg PO DAILY [facility] Last Admin: 12/26/17 10:41 Dose: 81 mg Clopidogrel Bisulfate (Plavix) 75 mg PO DAILY [facility] Last Admin: 12/26/17 10:41 Dose: 75 mg Cyanocobalamin (Vitamin B-12) 5,000 mcg PO DAILY [facility] Last Admin: 12/26/17 10:41 Dose: 5,000 mcg Donepezil HCl (Aricept) 5 mg PO HS [facility] Last Admin: 12/25/17 21:51 Dose: 5 mg Enoxaparin Sodium (Lovenox) 40 mg SC 0900 [facility] Last Admin: 12/26/17 10:42 Dose: 40 mg Famotidine (Pepcid) 20 mg PO BID [facility] Last Admin: 12/26/17 10:41 Dose: 20 mg Furosemide (Lasix) 40 mg PO NOW [facility] Stop: 12/26/17 12:00 Last Admin: 12/26/17 10:41 Dose: 40 mg Guaifenesin/Dextromethorphan (Robitussin Dm) 15 ml PO Q4H PRN PRN Reason: Cough Losartan Potassium (Cozaar) 50 mg PO DAILY [facility] Last Admin: 12/26/17 10:41 Dose: 50 mg Melatonin (Melatonin) 3 mg PO HS [facility] Last Admin: 12/25/17 21:55 Dose: 3 mg Metoprolol Tartrate (Lopressor) 25 mg PO BID [facility] Last Admin: 12/26/17 10:41 Dose: 25 mg Rosuvastatin Calcium (Crestor) 10 mg PO HS [facility] Last Admin: 12/25/17 21:51 Dose: 10 mg Senna (Senokot) 2 tab PO HSPRN PRN PRN Reason: Constipation Sodium Chloride (Flush - Normal Saline) 10 ml IVF Q12HR [facility] Last Admin: 12/26/17 10:42 Dose: 10 ml Sodium Chloride (Flush - Normal Saline) 10 ml IVF PRN PRN PRN Reason: Saline Flush
[2017-12-26 11:11] LABS: ALT (SGPT) 62 U/L (8-55); AST (SGOT) 43 U/L (5-34); Albumin 3.9 g/dL (3.4-4.8); Alkaline Phosphatase 74 U/L (40-150); Anion Gap 18 mmol/L (10-20); BUN (Urea Nitrogen) 10 mg/dL (9.8-20.1); Bilirubin, Total 1.1 mg/dL (0.2-1.2); Calc. Creatinine Clearance 48 mL/min (70-130); Calcium 8.7 mg/dL (7.8-10.44); Carbon Dioxide 15 mmol/L (23-31); Chloride 108 mmol/L (98-107); Estimated GFR-MDRD 65; Globulin 3.4 g/dL (2.4-3.5); Glucose 107 mg/dL (83-110); Potassium 4.1 mmol/L (3.5-5.1); Protein, Total 7.3 g/dL (6.0-8.3); Sodium 137 mmol/L (136-145)
[2017-12-26 13:43] LABS: Bilirubin Negative (Negative); Blood, Urine Small (Negative); Clarity CLEAR (Clear); Glucose, Urine (Dipstick) Negative (Negative); Leukocyte Negative (Negative); Nitrite Negative (Negative); Protein, Urine (Dipstick) 100 mg/dL (Neg-Trace); Specific Gravity, Urine 1.014 (1.002-1.036)
[2017-12-26 13:53] LABS: Bacteria/HPF None Seen HPF (None Seen); Hyaline Casts/LPF 0-3 HYALINE CAST LPF (0-3 Hyaline); Pathc Cast-AUWi Flag 0.54 (0-2.49); Squamous Epithelial 0-3 HPF (0-3); WBC/HPF 0-3 HPF (0-3)
[2017-12-26] MEDS ORDERED: ALPRAZolam 0.25 MG TAB PO PRN (15:42)
--- NOTE | 2017-12-26 15:53 | CT ---
CT ANGIOGRAM OF THE BRAIN CT ANGIOGRAM OF THE NECK NONCONTRAST HEAD CT: Date: 12/26/17 HISTORY: Stroke. COMPARISON: None. CORRELATION: Brain MRI dated 12/24/17. TECHNIQUE: Noncontrast head CT is performed in the axial plane. CT angiogram of the head and neck are performed in the axial plane. Sagittal and coronal three dimensional reformatted images are submitted for inter pretation. FINDINGS: NONCONTRAST HEAD CT: No parenchymal hemorrhage or extra-axial hematoma. No parenchymal mass, mass effect, or midline shift . Age-appropriate brain volume. Cortical gusman-white matter differentiation is preserved. Ventricles and sulci are patent and symmetric. White matter hypodensities due to chronic small vessel ischemic changes are noted. There is cavernous carotid atherosclerosis. Calvarium is intact. Left maxillary sinus disease. Adequate aeration of the mastoid air cells. On the postcontrast images, there is no pathologic enhancement of the brain parenchyma. Bilateral ocular lens implants are appropriately located. Both globes are intact. Retrobulbar fat is preserved. Symmetric attenuation of the optic nerves and ocular rectus muscles. Aerodigestive tract is patent. No mucosal abnormality. Midline fatty raphe of the tongue is preserved . Symmetric attenuation of the parotid and submandibular glands. Symmetric attenuation of the sternocle idomastoid muscles. Thyroid gland is unremarkable. No evidence of lymphadenopathy by size criteria. Varying degrees of central canal stenosis and foraminal narrowing on the basis of degenerative change . Upper mediastinal structures are unremarkable. There is a small amount of fluid in the pericardium. S mall bilateral pleural effusions. Parenchymal changes in the visualized lung apices and superior segm ents of the lower lobe are likely due to chronic process. CT ANGIOGRAM: There is atherosclerosis of the aortic arch. RIGHT CAROTID: Right carotid artery origin has appropriate enhancement and luminal diameter. There is tortuosity of the innominate artery. The right common carotid artery has appropriate enhancement and luminal diamet er. Small amount of calcified and noncalcified plaque in right carotid bifurcation. The internal vale tid artery has appropriate enhancement and luminal diameter. LEFT CAROTID: Left carotid artery origin has appropriate enhancement and luminal diameter. Left common carotid ruddy ry is mildly tortuous. The left common carotid artery has appropriate enhancement and luminal diamete r. Small amount of calcified and noncalcified plaque in the left carotid bifurcation. Left internal c arotid artery has appropriate enhancement and luminal diameter. There is appropriate flow-related sig nal. Both vertebral arteries are patent throughout their course in the neck. Both subclavian arteries are unremarkable. CT ANGIOGRAM OF HEAD: There is symmetric enhancement and luminal diameter of the distal cervical, petrous segment, cavernou s, and paraclinoid segments of both internal carotid arteries. There is a fusiform aneurysm at the te rminus of the right internal carotid artery measuring approximately 1.4 cm mediolateral x 0.9 cm cran iocaudal. Left carotid terminus is unremarkable. There is beading and irregularity involving a majori ty of the left M1 segment. There is short segment moderate to severe stenosis involving the distal ri ght M1 segment. Proximal MCA branches appear to be symmetric. A2 segments are unremarkable. Codominant vertebral arteries identified. Limited evaluation of the left and right PICA artery origin s. Both vertebral arteries supply a slightly irregular appearing basilar artery with minimal beading. 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 The left and right P1 segments appear to have a or igin. There does appear to be a small basilar tip aneurysm measuring 5.0 mm. IMPRESSION: 1. Large aneurysm involving the right internal carotid artery terminus. Neurosurgical consultation i s recommended. 2. Basilar tip aneurysm. 3. Irregularity and beading involving the basilar artery and left M1 segment. 4. Short segment moderate stenosis involving the distal right M1 segment. POS: ADALBERTO
[2017-12-26 16:03] LABS: pH, Arterial 7.47 (7.35-7.45)
[2017-12-26 16:04] LABS: Base Excess (BEa) -2.2 mEq/L (0 (+/-) 2.5); O2 Tension (PaO2) 47.8 mmHg (80.0-100.0)
[2017-12-26 16:05] LABS: Analyzer IN Cardio OR; Calcium, Ionized 1.2 mmol/L (1.12-1.30); Hematocrit-ABG 43.5 % (36.0-47.0); Hemoglobin (Hb) 14.1 g/dL (12.0-16.0); Puncture Site RRA
[2017-12-26] MEDS ORDERED: Iopamidol 370 76% 100 ML VIAL ONE (17:19)
[2017-12-26] MEDS: Donepezil HCl 5 MG TAB PO SCH (20:06)
[2017-12-26] MEDS: Rosuvastatin 10 MG TAB PO SCH (20:07)
[2017-12-26] MEDS: Melatonin 3 MG TAB PO SCH (20:07)
[2017-12-26] MEDS ORDERED: diphenhydrAMINE 25 MG CAP PO SCH (20:45)
[2017-12-27 04:53] LABS: Anion Gap 12 mmol/L (10-20); BUN (Urea Nitrogen) 11 mg/dL (9.8-20.1); Calc. Creatinine Clearance 49 mL/min (70-130); Calcium 8.8 mg/dL (7.8-10.44); Carbon Dioxide 20 mmol/L (23-31); Chloride 110 mmol/L (98-107); Estimated GFR-MDRD 67; Glucose 87 mg/dL (83-110); Potassium 3.7 mmol/L (3.5-5.1); Sodium 138 mmol/L (136-145)
[2017-12-27] MEDS: Cyanocobalamin (Vitamin B-12) 1,000 MCG TAB PO SCH (09:01)
[2017-12-27] MEDS: Losartan 25 MG TAB PO SCH (09:01)
[2017-12-27] MEDS: Enoxaparin Sodium 40 MG/0.4 ML SYRINGE SC SCH (09:01)
[2017-12-27] MEDS: Furosemide 40 MG TAB PO SCH ×2 (09:02→14:51)
[2017-12-27] MEDS: Clopidogrel Bisulfate 75 MG TAB PO SCH (09:02)
[2017-12-27] MEDS: Metoprolol Tartrate 25 MG TAB PO SCH ×2 (09:02→19:26)
[2017-12-27] MEDS: Famotidine 20 MG TAB PO SCH ×2 (09:02→19:26)
--- NOTE | 2017-12-27 10:22 | PDOC.PN ---
- Subjective Encounter Start Date: 12/27/17 Encounter Start Time: 09:15 Subjective: is sitting in chair, not in distress -: responds to verbal stimuli, not fully oriented - Objective Resuscitation Status: Resuscitation Status DNR:Do Not Resuscitate MAR Reviewed: Yes Vital Signs & Weight: Vital Signs (12 hours) Temp Pulse Resp BP Pulse Ox 12/27/17 07:30 98.3 F 60 20 175/79 H 92 L 12/27/17 05:15 98.4 F 56 L 18 158/66 H 94 L Weight Admit Weight 143 lb Weight 143 lb I&O: 12/26/17 12/27/17 12/28/17 06:59 06:59 06:59 Intake Total 120 1020 Output Total 1001 Balance 120 19 Result Diagrams: 12/26/17 10:23 12/27/17 04:09 Phys Exam - Physical Examination HEENT: PERRLA, moist MMs Neck: no JVD, supple Respiratory: no wheezing, no rales rhonchi++ Cardiovascular: RRR, no significant murmur Gastrointestinal: soft, no distention, positive bowel sounds Musculoskeletal: no edema, pulses present has acral cyanosis Neurological: non-focal, moves all 4 limbs mild ataxia of right UE Dx/Plan (1) NSTEMI (non-ST elevated myocardial infarction) Code(s): I21.4 - NON-ST ELEVATION (NSTEMI) MYOCARDIAL INFARCTION Status: Acute (2) CHF (congestive heart failure) Code(s): I50.9 - HEART FAILURE, UNSPECIFIED Status: Acute Qualifiers: Heart failure type: diastolic Heart failure chronicity: acute Qualified Code(s): I50.31 - Acute diastolic (congestive) heart failure (3) CVA (cerebral vascular accident) Code(s): I63.9 - CEREBRAL INFARCTION, UNSPECIFIED Status: Acute Qualifiers: CVA mechanism: unspecified Qualified Code(s): I63.9 - Cerebral infarction, unspecified (4) Interstitial lung disease Code(s): J84.9 - INTERSTITIAL PULMONARY DISEASE, UNSPECIFIED Status: Chronic (5) Carotid aneurysm, right Code(s): I72.0 - ANEURYSM OF CAROTID ARTERY Status: Chronic (6) HTN (hypertension) Code(s): I10 - ESSENTIAL (PRIMARY) HYPERTENSION Status: Chronic Qualifiers: Hypertension type: essential hypertension Qualified Code(s): I10 - Essential (primary) hypertension (7) Dementia Code(s): F03.90 - UNSPECIFIED DEMENTIA WITHOUT BEHAVIORAL DISTURBANCE Status: Chronic Qualifiers: Dementia type: unspecified type Dementia behavioral disturbance: with behavioral disturbance Qualified Code(s): F03.91 - Unspecified dementia with behavioral disturbance - Plan hemo stable -: is stable on nasal oxygen -: d/w daughter at bedside, is DNR -: will need home oxygen -: discussed about placement, daughter likes to take her home and stay 24/7 * . on asp, plavix, crestor lasix po bid levaquin for uti, await final cultures Review of Systems - Medications/Allergies Allergies/Adverse Reactions: Allergies Allergy/AdvReac Type Severity Reaction Status Date / Time No Known Allergies Allergy Verified 09/05/17 13:06 Medications: Current Medications Acetaminophen (Tylenol) 650 mg PO Q4H PRN PRN Reason: Headache/Fever or Pain Albuterol/Ipratropium (Duoneb) 3 ml NEB [id number] [facility] Last Admin: 12/26/17 22:25 Dose: 3 ml Alprazolam (Xanax) 0.25 mg PO TIDPRN PRN PRN Reason: Anxiety Aspirin (Aspirin Chewable) 81 mg PO DAILY [facility] Last Admin: 12/27/17 09:02 Dose: 81 mg Clopidogrel Bisulfate (Plavix) 75 mg PO DAILY [facility] Last Admin: 12/27/17 09:02 Dose: 75 mg Cyanocobalamin (Vitamin B-12) 5,000 mcg PO DAILY [facility] Last Admin: 12/27/17 09:01 Dose: 5,000 mcg Donepezil HCl (Aricept) 5 mg PO HS [facility] Last Admin: 12/26/17 20:06 Dose: 5 mg Enoxaparin Sodium (Lovenox) 40 mg SC 0900 [facility] Last Admin: 12/27/17 09:01 Dose: 40 mg Famotidine (Pepcid) 20 mg PO BID [facility] Last Admin: 12/27/17 09:02 Dose: 20 mg Furosemide (Lasix) 40 mg PO 0900,1400 [facility] Last Admin: 12/27/17 09:02 Dose: 40 mg Guaifenesin/Dextromethorphan (Robitussin Dm) 15 ml PO Q4H PRN PRN Reason: Cough Levofloxacin (Levaquin) 500 mg PO 0600 [facility] Last Admin: 12/27/17 05:17 Dose: 500 mg Losartan Potassium (Cozaar) 50 mg PO DAILY [facility] Last Admin: 12/27/17 09:01 Dose: 50 mg Melatonin (Melatonin) 3 mg PO HS [facility] Last Admin: 12/26/17 20:07 Dose: 3 mg Metoprolol Tartrate (Lopressor) 25 mg PO BID [facility] Last Admin: 12/27/17 09:02 Dose: 25 mg Rosuvastatin Calcium (Crestor) 10 mg PO HS [facility] Last Admin: 12/26/17 20:07 Dose: 10 mg Senna (Senokot) 2 tab PO HSPRN PRN PRN Reason: Constipation Sodium Chloride (Flush - Normal Saline) 10 ml IVF Q12HR [facility] Last Admin: 12/27/17 09:02 Dose: 10 ml Sodium Chloride (Flush - Normal Saline) 10 ml IVF PRN PRN PRN Reason: Saline Flush
[2017-12-27] MEDS: Rosuvastatin 10 MG TAB PO SCH (19:25)
[2017-12-27] MEDS: Melatonin 3 MG TAB PO SCH (19:26)
[2017-12-27] MEDS: Donepezil HCl 5 MG TAB PO SCH (19:26)
[2017-12-27] MEDS ORDERED: Metoprolol Tartrate 25 MG TAB PO SCH (23:45)
[2017-12-28 04:32] LABS: Anion Gap 12 mmol/L (10-20); BUN (Urea Nitrogen) 9 mg/dL (9.8-20.1); Calc. Creatinine Clearance 51 mL/min (70-130); Calcium 8.4 mg/dL (7.8-10.44); Carbon Dioxide 24 mmol/L (23-31); Chloride 106 mmol/L (98-107); Estimated GFR-MDRD 70; Glucose 92 mg/dL (83-110); Potassium 3.2 mmol/L (3.5-5.1); Sodium 139 mmol/L (136-145)
[2017-12-28] MEDS: Losartan 25 MG TAB PO SCH (08:53)
[2017-12-28] MEDS: Clopidogrel Bisulfate 75 MG TAB PO SCH (08:54)
[2017-12-28] MEDS: Cyanocobalamin (Vitamin B-12) 1,000 MCG TAB PO SCH (08:54)
[2017-12-28] MEDS: Furosemide 40 MG TAB PO SCH ×2 (08:55→15:25)
[2017-12-28] MEDS: Famotidine 20 MG TAB PO SCH ×2 (08:55→20:45)
[2017-12-28] MEDS: Metoprolol Tartrate 25 MG TAB PO SCH ×2 (08:55→20:45)
[2017-12-28] MEDS: Enoxaparin Sodium 40 MG/0.4 ML SYRINGE SC SCH (08:56)
--- NOTE | 2017-12-28 10:46 | PDOC.PN ---
- Subjective Encounter Start Date: 12/28/17 Encounter Start Time: 10:15 Subjective: feels better, is sitting in sofa, ate her breakfast -: breathing better, no chest pain -: still has some ataxia in right UE - Objective Resuscitation Status: Resuscitation Status DNR:Do Not Resuscitate MAR Reviewed: Yes Vital Signs & Weight: Vital Signs (12 hours) Temp Pulse Resp BP Pulse Ox 12/28/17 08:00 99.8 F H 56 L 18 166/70 H 95 12/28/17 07:56 97.8 F 62 18 12/28/17 05:19 97.8 F 62 18 166/78 H 92 L 12/28/17 00:25 98.2 F 57 L 22 H 190/89 H 94 L 12/27/17 23:22 95 Weight Admit Weight 143 lb Weight 143 lb I&O: 12/27/17 12/28/17 12/29/17 06:59 06:59 06:59 Intake Total 1020 1200 Output Total 1001 800 Balance 19 400 Result Diagrams: 12/26/17 10:23 12/28/17 03:58 Phys Exam - Physical Examination HEENT: PERRLA, moist MMs Neck: no JVD, supple Respiratory: no wheezing rhonchi++ Cardiovascular: RRR, no significant murmur Gastrointestinal: soft, non-tender, positive bowel sounds Musculoskeletal: no edema, pulses present Neurological: non-focal, moves all 4 limbs Psychiatric: A&O x 3 Dx/Plan (1) CHF (congestive heart failure) Code(s): I50.9 - HEART FAILURE, UNSPECIFIED Status: Acute Qualifiers: Heart failure type: diastolic Heart failure chronicity: acute Qualified Code(s): I50.31 - Acute diastolic (congestive) heart failure (2) CVA (cerebral vascular accident) Code(s): I63.9 - CEREBRAL INFARCTION, UNSPECIFIED Status: Acute Qualifiers: CVA mechanism: unspecified Qualified Code(s): I63.9 - Cerebral infarction, unspecified (3) Interstitial lung disease Code(s): J84.9 - INTERSTITIAL PULMONARY DISEASE, UNSPECIFIED Status: Chronic (4) Carotid aneurysm, right Code(s): I72.0 - ANEURYSM OF CAROTID ARTERY Status: Chronic (5) HTN (hypertension) Code(s): I10 - ESSENTIAL (PRIMARY) HYPERTENSION Status: Chronic Qualifiers: Hypertension type: essential hypertension Qualified Code(s): I10 - Essential (primary) hypertension (6) Dementia Code(s): F03.90 - UNSPECIFIED DEMENTIA WITHOUT BEHAVIORAL DISTURBANCE Status: Chronic Qualifiers: Dementia type: unspecified type Dementia behavioral disturbance: with behavioral disturbance Qualified Code(s): F03.91 - Unspecified dementia with behavioral disturbance (7) Demand ischemia of myocardium Code(s): I24.8 - OTHER FORMS OF ACUTE ISCHEMIC HEART DISEASE Status: Resolved - Plan is amb with rw with no assistance -: d/w daughter at bedside -: continue lasix for another 24hrs -: will likely need home oxygen -: is DNR, continue palliative care for pulm fibrosis with multiple med issues * . urine cs is contaminated, continue levaquin for now on asp, plavix, crestor, cozaar. Replace K Review of Systems - Medications/Allergies Allergies/Adverse Reactions: Allergies Allergy/AdvReac Type Severity Reaction Status Date / Time No Known Allergies Allergy Verified 09/05/17 13:06 Medications: Current Medications Acetaminophen (Tylenol) 650 mg PO Q4H PRN PRN Reason: Headache/Fever or Pain Albuterol/Ipratropium (Duoneb) 3 ml NEB [id number] [facility] Last Admin: 12/28/17 10:12 Dose: Not Given Alprazolam (Xanax) 0.25 mg PO TIDPRN PRN PRN Reason: Anxiety Aspirin (Aspirin Chewable) 81 mg PO DAILY [facility] Last Admin: 12/28/17 08:55 Dose: 81 mg Clopidogrel Bisulfate (Plavix) 75 mg PO DAILY [facility] Last Admin: 12/28/17 08:54 Dose: 75 mg Cyanocobalamin (Vitamin B-12) 5,000 mcg PO DAILY [facility] Last Admin: 12/28/17 08:54 Dose: 5,000 mcg Donepezil HCl (Aricept) 5 mg PO HS [facility] Last Admin: 12/27/17 19:26 Dose: 5 mg Enoxaparin Sodium (Lovenox) 40 mg SC 0900 [facility] Last Admin: 12/28/17 08:56 Dose: 40 mg Famotidine (Pepcid) 20 mg PO BID [facility] Last Admin: 12/28/17 08:55 Dose: 20 mg Furosemide (Lasix) 40 mg PO 0900,1400 [facility] Last Admin: 12/28/17 08:55 Dose: 40 mg Guaifenesin/Dextromethorphan (Robitussin Dm) 15 ml PO Q4H PRN PRN Reason: Cough Levofloxacin (Levaquin) 500 mg PO 0600 [facility] Last Admin: 12/28/17 05:17 Dose: 500 mg Losartan Potassium (Cozaar) 50 mg PO DAILY [facility] Last Admin: 12/28/17 08:53 Dose: 50 mg Melatonin (Melatonin) 3 mg PO HS [facility] Last Admin: 12/27/17 19:26 Dose: 3 mg Metoprolol Tartrate (Lopressor) 25 mg PO BID [facility] Last Admin: 12/28/17 08:55 Dose: 25 mg Prednisone (Prednisone) 5 mg PO QA-[facility] Rosuvastatin Calcium (Crestor) 10 mg PO HS [facility] Last Admin: 12/27/17 19:25 Dose: 10 mg Senna (Senokot) 2 tab PO HSPRN PRN PRN Reason: Constipation Last Admin: 12/27/17 19:25 Dose: 2 tab Sodium Chloride (Flush - Normal Saline) 10 ml IVF Q12HR [facility] Last Admin: 12/28/17 09:06 Dose: 10 ml Sodium Chloride (Flush - Normal Saline) 10 ml IVF PRN PRN PRN Reason: Saline Flush
[2017-12-28] MEDS ORDERED: predniSONE 5 MG TAB PO SCH (11:00)
[2017-12-28] MEDS ORDERED: Potassium Chloride 20 MEQ TAB PO SCH (11:00)
[2017-12-28] MEDS: Potassium Chloride 20 MEQ TAB PO SCH (15:26)
[2017-12-28] MEDS: Melatonin 3 MG TAB PO SCH (20:45)
[2017-12-28] MEDS: Rosuvastatin 10 MG TAB PO SCH (20:45)
[2017-12-28] MEDS: Donepezil HCl 5 MG TAB PO SCH (20:45)
[2017-12-29 05:32] LABS: Anion Gap 11 mmol/L (10-20); BUN (Urea Nitrogen) 7 mg/dL (9.8-20.1); Calc. Creatinine Clearance 50 mL/min (70-130); Calcium 8.7 mg/dL (7.8-10.44); Carbon Dioxide 26 mmol/L (23-31); Chloride 105 mmol/L (98-107); Estimated GFR-MDRD 68; Glucose 99 mg/dL (83-110); Potassium 3.8 mmol/L (3.5-5.1); Sodium 138 mmol/L (136-145)
[2017-12-29] MEDS ORDERED: predniSONE 5 MG TAB PO SCH (08:00)
[2017-12-29] MEDS: Cyanocobalamin (Vitamin B-12) 1,000 MCG TAB PO SCH (08:35)
[2017-12-29] MEDS: Potassium Chloride 20 MEQ TAB PO SCH (08:35)
[2017-12-29] MEDS: Furosemide 40 MG TAB PO SCH (08:36)
[2017-12-29] MEDS: Metoprolol Tartrate 25 MG TAB PO SCH ×2 (08:36→20:16)
[2017-12-29] MEDS: Losartan 25 MG TAB PO SCH (08:36)
[2017-12-29] MEDS: Famotidine 20 MG TAB PO SCH ×2 (08:36→20:15)
[2017-12-29] MEDS: Clopidogrel Bisulfate 75 MG TAB PO SCH (08:37)
[2017-12-29] MEDS: Enoxaparin Sodium 40 MG/0.4 ML SYRINGE SC SCH (08:37)
--- NOTE | 2017-12-29 11:42 | PDOC.PN ---
- Subjective Encounter Start Date: 12/29/17 Encounter Start Time: 09:15 Subjective: feels better, no sob at rest -: is amb with PT, still has ataxia in right UE -: daughter at bedside - Objective Resuscitation Status: Resuscitation Status DNR:Do Not Resuscitate MAR Reviewed: Yes Vital Signs & Weight: Vital Signs (12 hours) Temp Pulse Resp BP Pulse Ox 12/29/17 07:51 98 F 74 18 148/76 H 95 12/29/17 06:27 62 16 98 12/29/17 04:50 98.2 F 60 22 H 151/74 H 96 12/29/17 01:57 94 L 12/29/17 00:55 97.3 F L 58 L 16 148/71 H 97 Weight Admit Weight 143 lb Weight 143 lb I&O: 12/28/17 12/29/17 12/30/17 06:59 06:59 06:59 Intake Total 1200 1000 Output Total 800 Balance 400 1000 Result Diagrams: 12/26/17 10:23 12/29/17 04:09 Phys Exam - Physical Examination HEENT: PERRLA, moist MMs Neck: no JVD, supple Respiratory: no wheezing rales+ Cardiovascular: RRR, no significant murmur Gastrointestinal: soft, non-tender, positive bowel sounds Musculoskeletal: no edema, pulses present Neurological: non-focal, moves all 4 limbs right UE ataxia+ Psychiatric: A&O x 3 Dx/Plan (1) CHF (congestive heart failure) Code(s): I50.9 - HEART FAILURE, UNSPECIFIED Status: Acute Qualifiers: Heart failure type: diastolic Heart failure chronicity: acute Qualified Code(s): I50.31 - Acute diastolic (congestive) heart failure (2) CVA (cerebral vascular accident) Code(s): I63.9 - CEREBRAL INFARCTION, UNSPECIFIED Status: Acute Qualifiers: CVA mechanism: unspecified Qualified Code(s): I63.9 - Cerebral infarction, unspecified (3) Interstitial lung disease Code(s): J84.9 - INTERSTITIAL PULMONARY DISEASE, UNSPECIFIED Status: Chronic (4) Carotid aneurysm, right Code(s): I72.0 - ANEURYSM OF CAROTID ARTERY Status: Chronic (5) HTN (hypertension) Code(s): I10 - ESSENTIAL (PRIMARY) HYPERTENSION Status: Chronic Qualifiers: Hypertension type: essential hypertension Qualified Code(s): I10 - Essential (primary) hypertension (6) Dementia Code(s): F03.90 - UNSPECIFIED DEMENTIA WITHOUT BEHAVIORAL DISTURBANCE Status: Chronic Qualifiers: Dementia type: unspecified type Dementia behavioral disturbance: with behavioral disturbance Qualified Code(s): F03.91 - Unspecified dementia with behavioral disturbance (7) Demand ischemia of myocardium Code(s): I24.8 - OTHER FORMS OF ACUTE ISCHEMIC HEART DISEASE Status: Resolved - Plan is amb with rw and walking program -: check room air spo2 and ambulatory spo2 as well -: will likely need home oxygen if rehab denies her -: d/w daughter at bedside -: oral lasix, small dose of prednisone to dc in 3 days * . If rehab denies plan is for HH with PT and home oxygen, daughter has arranged for help at home when she works. Review of Systems - Medications/Allergies Allergies/Adverse Reactions: Allergies Allergy/AdvReac Type Severity Reaction Status Date / Time No Known Allergies Allergy Verified 09/05/17 13:06 Medications: Current Medications Acetaminophen (Tylenol) 650 mg PO Q4H PRN PRN Reason: Headache/Fever or Pain Albuterol/Ipratropium (Duoneb) 3 ml NEB [id number] [facility] Last Admin: 12/29/17 06:27 Dose: 3 ml Alprazolam (Xanax) 0.25 mg PO TIDPRN PRN PRN Reason: Anxiety Aspirin (Aspirin Chewable) 81 mg PO DAILY [facility] Last Admin: 12/29/17 08:36 Dose: 81 mg Clopidogrel Bisulfate (Plavix) 75 mg PO DAILY [facility] Last Admin: 12/29/17 08:37 Dose: 75 mg Cyanocobalamin (Vitamin B-12) 5,000 mcg PO DAILY [facility] Last Admin: 12/29/17 08:35 Dose: 5,000 mcg Donepezil HCl (Aricept) 5 mg PO HS [facility] Last Admin: 12/28/17 20:45 Dose: 5 mg Enoxaparin Sodium (Lovenox) 40 mg SC 0900 [facility] Last Admin: 12/29/17 08:37 Dose: 40 mg Famotidine (Pepcid) 20 mg PO BID [facility] Last Admin: 12/29/17 08:36 Dose: 20 mg Furosemide (Lasix) 40 mg PO 0900,1400 [facility] Last Admin: 12/29/17 08:36 Dose: 40 mg Guaifenesin/Dextromethorphan (Robitussin Dm) 15 ml PO Q4H PRN PRN Reason: Cough Levofloxacin (Levaquin) 500 mg PO 0600 [facility] Last Admin: 12/29/17 05:30 Dose: 500 mg Losartan Potassium (Cozaar) 50 mg PO DAILY [facility] Last Admin: 12/29/17 08:36 Dose: 50 mg Melatonin (Melatonin) 3 mg PO HS [facility] Last Admin: 12/28/17 20:45 Dose: 3 mg Metoprolol Tartrate (Lopressor) 25 mg PO BID [facility] Last Admin: 12/29/17 08:36 Dose: 25 mg Potassium Chloride (K-Dur) 40 meq PO BID-[facility] Last Admin: 12/29/17 08:35 Dose: 40 meq Prednisone (Prednisone) 5 mg PO QAM-[facility] Last Admin: 12/29/17 08:37 Dose: 5 mg Rosuvastatin Calcium (Crestor) 10 mg PO HS [facility] Last Admin: 12/28/17 20:45 Dose: 10 mg Senna (Senokot) 2 tab PO HSPRN PRN PRN Reason: Constipation Last Admin: 12/27/17 19:25 Dose: 2 tab Sodium Chloride (Flush - Normal Saline) 10 ml IVF Q12HR [facility] Last Admin: 12/29/17 08:37 Dose: 10 ml Sodium Chloride (Flush - Normal Saline) 10 ml IVF PRN PRN PRN Reason: Saline Flush
--- NOTE | 2017-12-29 13:48 | CON ---
DATE OF CONSULTATION: 12/29/2017 CONSULTING PHYSICIAN: Dr. Richard. REASON FOR CONSULTATION: Shortness of breath. HISTORY OF PRESENT ILLNESS: Ms. Martinez is an 87-year-old female who has interstitial lung disease a nd possibly idiopathic pulmonary fibrosis. She has known bronchiectasis. She was admitted with righ t-sided hemiparesis and non-ST segment elevation MA. She was found to be hypoxic. We have noted [place] e mild hypoxemia in the office in the past. Up to this point, she had not needed home oxygen, but sh e may need going forward. Her family tells me she was supposed to go to rehabilitation this afternoo n. It is almost impossible to get an accurate history from the patient because she is demented and c onfabulates all of her answers. What I have is obtained from reading the records in the chart and fr om discussing with family. PAST MEDICAL AND SURGICAL HISTORY: See above. Medical history is also notable for hypertension, hyp erlipidemia and obstructive sleep apnea which she refuses to wear CPAP, carotid aneurysm, pericardial effusion, hernia repair and dementia dimension. MEDICATIONS PRIOR TO ADMISSION: Aspirin, vitamin B12, donepezil, Lasix, losartan, melatonin, Lopress or and Toprol. ALLERGIES: None. SOCIAL HISTORY: No smoking history. Does not consume alcohol. FAMILY MEDICAL HISTORY: Remarkable for leukemia and heart disease. REVIEW OF SYSTEMS: Twelve-point review of systems otherwise negative. PHYSICAL EXAMINATION: VITAL SIGNS: Temperature 97.9, pulse 66, respirations 18, O2 sat 96% on 2 liters and blood pressure 127/56. GENERAL: She is awake and alert, in no distress. HEENT: Unremarkable. NECK: No JVD. LUNGS: She has inspiratory crackles at both bases. CARDIAC: S1 and S2 regular. ABDOMEN: Soft and nontender. EXTREMITIES: No clubbing, cyanosis, or edema. NEUROLOGIC: Grossly intact throughout except for her memory. LABORATORY DATA: White blood cell count 5.5, hematocrit 46 and platelet count 192. Sodium 130, pota ssium 3.8, chloride 105, CO2 of 26, BUN 7, creatinine 0.8 and glucose 99. IMAGING DATA: I reviewed CT of the chest, it shows some interstitial changes in the bases. ASSESSMENT: Interstitial lung disease/bronchiectasis. RECOMMENDATIONS: She probably will need oxygen therapy at home. No other recommendations from a pul monary standpoint. She has follow up in my office at some point in the future.
[2017-12-29] MEDS: Melatonin 3 MG TAB PO SCH (20:15)
[2017-12-29] MEDS: Donepezil HCl 5 MG TAB PO SCH (20:16)
[2017-12-29] MEDS: Rosuvastatin 10 MG TAB PO SCH (20:16)
[2017-12-29 20:52] VITALS: BP 121/68; TEMP 97.3
[2017-12-30] MEDS ORDERED: Furosemide 40 MG TAB PO SCH (07:30)
[2017-12-30] MEDS ORDERED: Potassium Chloride 20 MEQ TAB PO SCH (08:00)
[2017-12-30] MEDS ORDERED: predniSONE 5 MG TAB PO SCH (08:00)
--- NOTE | 2017-12-30 09:17 | DIS ---
DATE OF ADMISSION: 12/24/2017 DATE OF DISCHARGE: 12/29/2017 DISCHARGE DISPOSITION: To inpatient rehabilitation. PRIMARY DISCHARGE DIAGNOSES: Acute cerebrovascular accident with right upper extremity ataxia, acute congestive heart failure exacerbation with diastolic dysfunction, chronic interstitial lung disease/ fibrosis, chronic right carotid aneurysm. SECONDARY DISCHARGE DIAGNOSES: Hypertension, demand ischemia, and dementia. PROCEDURES DONE DURING HOSPITALIZATION: MRI of brain done showed punctate supratentorial and infrate ntorial recent infarcts, possible amyloid angiopathy, possible fusiform aneurysm of the carotid sipho n. CT dissection protocol done showed no evidence of dissection or pulmonary embolism, bibasilar par enchymal lung infiltrates, likely due to chronic interstitial lung disease. Echo with 2D Doppler hugo wed EF of 55%, RV cavity was enlarged, moderate mitral regurgitation, moderate aortic regurgitation, moderate to severe tricuspid regurgitation and elevated pulmonary artery pressure estimated at 63 mmH g, moderate size pericardial effusion without hemodynamic evidence of tamponade. CT angio of head, n veda and brain showed large aneurysm involving right internal carotid artery terminus, basilar tip ane urysm irregularity and beating involving basilar artery and left M1 segment, short segment moderate s tenosis involving the distal right M1 segment. Urine culture was contaminated, hemoglobin and hemato crit 14 and 46, platelet count 192. Blood gas done showed pH of 7.47 with pO2 of 47. Discharge BUN and creatinine 7 and 0.8, LDL 106, HDL 24, triglycerides 98. BNP was 7,155. Troponin I was 2.0 with CK-MB of 2.9, CK levels were 45. DISCHARGE MEDICATIONS: Aspirin 81 mg p.o. q.p.m., Xanax 0.25 mg p.o. 3 times daily p.r.n. for anxiet y, Prolia 60 mg IM as before, Aricept 5 mg p.o. daily, Lasix 40 mg p.o. daily, DuoNebs q.6 hourly, Le vaquin 500 mg p.o. daily for another 3 days for urinary tract infection, Cozaar 50 mg p.o. daily, adrianna atonin 3 mg p.o. at bedtime, Lopressor 25 mg p.o. twice daily, potassium chloride 20 mEq every 2 days , Crestor 10 mg p.o. at bedtime. ALLERGIES: No known drug allergies. INPATIENT CONSULTS: Dr. Sheyla Mott for Neurology, Dr. Sorenson for Cardiology, and Dr. Gallardo for Pulmo nology. BRIEF COURSE DURING HOSPITALIZATION: Patient initially was brought to emergency room for right upper extremity weakness which started 3 days prior to arrival here. She has had right upper extremity at axia on admission. The patient also had a troponin of 2 on arrival. She was placed on the stroke un it and has had complete stroke evidence based protocol followed. She was not given full dose anticoa gulation due to her MRI revealing CVA and clinical findings of right upper extremity ataxia to preven t periinfarct bleed. Patient had not complained of any chest pain as such. She has known history of right carotid fusiform aneurysm of the terminus. She was also hypoxic with acute respiratory failur e and had history of chronic pulmonary fibrosis. She decompensated with right heart failure and was placed on IV diuretics. The patient has responded well to above measures. The patient still has rig ht upper extremity ataxia. She has been able to ambulate with a rolling walker. Home oxygen will be setup for her chronic pulmonary fibrosis with hypoxia and right heart failure. She is being dischar ged to inpatient rehab for further recuperation. Please note patient and her daughter not wanting an y aggressive measures to be done for her carotid aneurysm. If they change their mind, they will need to follow up with Dr. Zapata who is aware of patient getting readmitted here and is also aware of the CT angio of brain done. The patient's code status is DNR. A total of 35 minutes was spent on discharge plan. Please a see f shital to face documentation on [facility] for the day of discharge.
--- NOTE | 2018-01-17 17:47 | EKG ---
Test Reason : Blood Pressure : / mmHG Vent. Rate : 056 BPM Atrial Rate : 056 BPM P-R Int : 144 ms QRS Dur : 096 ms QT Int : 520 ms P-R-T Axes : 040 -55 -37 degrees QTc Int : 501 ms Sinus bradycardia Possible Left atrial enlargement Incomplete right bundle branch block Left anterior fascicular block T wave abnormality, consider anterolateral ischemia Prolonged QT Abnormal ECG No changes 27-OCT-2017 Confirmed by STEVEN HAMMOND, STEVEN ([id number]), science editor CHANDRA GRUBER ([id number] on 01/17/2018 5:47:04 PM Referred By: Confirmed By:STEVEN HARRIS MD
== END 2017-12-29 21:10 | DRG 280 ==
LOC: ERS 08:00 → 2SE 12:37
PROVIDERS: ADMIT Internal Medicine; ATTEND Internal Medicine
DX: I21.4 Non-ST elevation (NSTEMI) myocardial infarction (principal); I63.9 Cerebral infarction, unspecified; J96.01 Acute respiratory failure with hypoxia; I50.33 Acute on chronic diastolic (congestive) heart failure; J84.9 Interstitial pulmonary disease, unspecified; J90 Pleural effusion, not elsewhere classified; F03.91 Unspecified dementia, unspecified severity, with behavioral disturbance; G81.91 Hemiplegia, unspecified affecting right dominant side; E85.4 Organ-limited amyloidosis; I31.3 Pericardial effusion (noninflammatory); I24.8 Other forms of acute ischemic heart disease; J84.10 Pulmonary fibrosis, unspecified; Z66 Do not resuscitate; R27.0 Ataxia, unspecified; I72.0 Aneurysm of carotid artery; I11.0 Hypertensive heart disease with heart failure; I68.0 Cerebral amyloid angiopathy; I08.3 Combined rheumatic disorders of mitral, aortic and tricuspid valves; G47.33 Obstructive sleep apnea (adult) (pediatric); J47.9 Bronchiectasis, uncomplicated; R73.9 Hyperglycemia, unspecified
CPT/HCPCS: 36415; 70450; 70496; 70498; 70551; 71045; 71275; 80048; 80053; 80061; 81001; 82553; 82805; 83520; 83880; 84484; 85025; 86038; 86200; 86225; 86235; 86780; 87086; 93005; 93306; 94640; 94760; 96372; A4216; G8978-GP-CJ; G8979-GP-CJ; G8980-GP-CJ; G8987-GO-CJ; G8988-GO-CI; G8996-GN-CI; G8997-GN-CI; J1650; J1940; J7620

== ENCOUNTER 2018-09-14 19:06 | Inpatient (IN) | payer MEDICARE, OTHER ==
[2018-09-14 19:56] LABS: #Eosinphils 0.1 thou/uL (0.0-0.7); #Monocytes 0.5 thou/uL (0.11-0.59); #Neutrophils 3.8 thou/uL (1.40-6.50); %Basophils 0.8 % (0.0-1.0); %Lymphocytes 18.7 % (21.0-51.0); %Monocytes 8.6 % (0.0-10.0); %Neutrophils 69.9 % (42.0-75.0); Hemoglobin 14.6 g/dL (12.0-16.0); Mean Corpuscular Hemoglobin 30.1 pg (27.0-31.0); Mean Corpuscular Volume 93.9 fL (78.0-98.0); Platelet Count 166 thou/uL (130-400); RBC Distribution Width 13.4 % (11.5-14.5); Red Blood Cell (RBC) Count 4.85 mill/uL (4.20-5.40); White Blood Cell (WBC) Count 5.5 thou/uL (4.8-10.8)
[2018-09-14 20:00] LABS: Bilirubin Negative (Negative); Blood, Urine Small (Negative); Clarity CLEAR (Clear); Glucose, Urine (Dipstick) Negative (Negative); Leukocyte Moderate (Negative); Nitrite Negative (Negative); Protein, Urine (Dipstick) Negative (Neg-Trace); Specific Gravity, Urine 1.009 (1.002-1.036); Urobilinogen 0.2 mg/dL (0.2-1.0); pH, Urine 5.5 (5.0-9.0)
[2018-09-14 20:02] LABS: Bacteria/HPF None Seen HPF (None Seen); Hyaline Casts/LPF 0-3 HYALINE CAST LPF (0-3 Hyaline); Pathc Cast-AUWi Flag 0.14 (0-2.49); Squamous Epithelial 0-3 HPF (0-3); WBC/HPF 21-50 HPF (0-3)
[2018-09-14 20:03] LABS: ALT (SGPT) 24 U/L (8-55); AST (SGOT) 29 U/L (5-34); Albumin 4.3 g/dL (3.4-4.8); Alkaline Phosphatase 58 U/L (40-150); Anion Gap 18 mmol/L (10-20); BUN (Urea Nitrogen) 14 mg/dL (9.8-20.1); Bilirubin, Total 0.8 mg/dL (0.2-1.2); CK (CPK) 42 U/L (29-168); Calc. Creatinine Clearance 0 mL/min (70-130); Calcium 10.2 mg/dL (7.8-10.44); Carbon Dioxide 21 mmol/L (23-31); Chloride 100 mmol/L (98-107); Estimated GFR-MDRD 57; Globulin 3.8 g/dL (2.4-3.5); Glucose 68 mg/dL (83-110); Lipase 42 U/L (8-78); Potassium 4.6 mmol/L (3.5-5.1); Protein, Total 8.1 g/dL (6.0-8.3); Sodium 134 mmol/L (136-145)
[2018-09-14 20:14] LABS: CKMB 2.9 ng/mL (0-6.6); Troponin I 0.195 ng/mL (< 0.028)
--- NOTE | 2018-09-14 20:35 | RAD ---
CHEST ONE VIEW: INDICATIONS: History of generalized weakness. COMPARISON: 12/14/2017 FINDINGS: There is prominent cardiomegaly. There is a loop recorder now present, overlying the left lower ches t wall. There is stable eventration of the right hemidiaphragm. Chronic lung changes are stable. D iffuse osteopenia is similar appearing. IMPRESSION: 1. Stable cardiomegaly and chronic lung changes. No definite acute cardiopulmonary abnormality. 2. Interval placement of left-sided loop recorder overlying left chest wall. POS: ADALBERTO
[2018-09-14] MEDS ORDERED: Sodium Chloride 0.9% 100 ML ONE (20:50)
[2018-09-14] MEDS ORDERED: cefTRIAXone\\ROCEPHIN 1 GM VIAL ONE (20:50)
[2018-09-14] MEDS ORDERED: Acetaminophen 500 MG TAB ONE (21:19)
[2018-09-14] MEDS ORDERED: Ondansetron ODT 4 MG TAB SL PRN (22:46)
[2018-09-14] MEDS ORDERED: Ondansetron PF 4 MG/2 ML Vial IVP PRN (22:46)
[2018-09-14 22:53] LABS: Troponin I 0.178 ng/mL (< 0.028)
[2018-09-14] MEDS: Sodium Chloride 0.9% 1,000 ML IV SCH (23:30)
[2018-09-15] MEDS: Sodium Chloride 0.9% 1,000 ML IV SCH (05:59)
[2018-09-15] MEDS ORDERED: Melatonin 3 MG TAB PO PRN (11:50)
[2018-09-15] MEDS ORDERED: Potassium Chloride 20 MEQ TAB PO SCH (12:00)
--- NOTE | 2018-09-15 12:43 | HP ---
CHIEF COMPLAINT: Weakness and trembling, inability to obtain blood pressure by the family. HISTORY OF PRESENT ILLNESS: The patient is an 88-year-old female who is getting her blood pressure checked by her daughter twice a day and when the daughter came to see her and check her bloo d pressure she could not get any reading. She noticed that her mother was trembling. She did not fe el cold. She did not have fever, but she appeared like she had some chills. She was very concerned about the whole situation and she tried to check her blood pressures several times and she could not get it, then she decided to take her to the emergency room for further evaluation and possible treatm ent or admission. The patient denies any new respiratory findings. She has pulmonary fibrosis and s he has some cough, but this is nothing new compared to what she had before. Also, she did not have a ny dysuria. No hematuria. She denied chest pain. She denied any kind of pain anywhere in her body. PAST MEDICAL HISTORY: 1. Hypertension. 2. Dyslipidemia. 3. Pulmonary fibrosis. 4. Cerebrovascular accident with right upper extremity ataxia. 5. Congestive heart failure with diastolic dysfunction. 6. Pulmonary hypertension. 7. Chronic right carotid aneurysm. 8. Sleep apnea. 9. History of urinary tract infections. PAST SURGICAL HISTORY: 1. Hernia repair. 2. Inguinal hernia repair. ALLERGIES: None. CURRENT MEDICATIONS: Aspirin 81 mg once a day, Lasix 40 mg if blood pressure is over 90, Toprol 25 mg twice a day if the blood pressure systolic is over 120, Losartan 50 mg if blood pressure is over 140, donepezil 5 mg every evening, melatonin 3 mg daily, cranberry 2 tablets once a daily, potassium chloride 40 mEq twice a day, Plavix 75 mg once a day, famotidine 20 mg twice a day, prednisone 5 mg d aily, Crestor 10 mg daily, Prolia injections every 6 months and eye drops, unknown name, unknown freq uency. SOCIAL HISTORY: She denies any alcohol use, cigarette smoking or use of any illicit drugs. FAMILY HISTORY: Mother had leukemia and she in her 70s and father had heart trouble and he in his 80s. PRIMARY CARE PHYSICIAN/PATIENT FINANCIAL SERVICES COORDINATOR: Dr. Ibanez DRYWALL MECHANIC: Dr. Danny Keita CODE STATUS: She is a DNR, surrogate decision maker is her daughter. REVIEW OF SYSTEMS: CONSTITUTIONAL: Positive for fever and chills. EYES: Negative for eye pain or eye discharge. ENT: Negative for epistaxis and nasal congestion. CARDIOVASCULAR: Negative for chest pain and palpitations. RESPIRATORY: Positive for some shortness of breath on exertion and some cough. GASTROINTESTINAL: Negative for nausea and vomiting. GENITOURINARY: Negative for dysuria or hematuria. SKIN: Negative for rash or erythema. NEUROLOGIC: Positive for some residual function of her right upper extremity secondary to her previo us stroke. PSYCHIATRIC: Negative for any suicidal or homicidal ideations. PHYSICAL EXAMINATION: VITAL SIGNS: Blood pressure is 117/56, temperature is 97.5, pulse is 62, respiratory rate is 18, O2 saturation is 95 on room air. GENERAL: The examination is performed with her daughter in the room. The patient is resting comfort ably in her bed. She follows my commands. She responds to my questions. HEENT: Head is atraumatic, normocephalic. Eyes are PERRLA. Sclerae nonicteric. Oral mucosa is yoon st. NECK: Supple, no lymphadenopathy. Thyroid is not palpable. LUNGS: Bilateral crackles present at both bases. No wheezing. HEART: S1, S2, somewhat distant. No S3, no S4. ABDOMEN: Soft, nontender, nondistended. EXTREMITIES: No clubbing, cyanosis or edema. Pulses on dorsalis pedis and tibialis posterior arteri es fair and similar bilaterally. NEUROLOGIC: She is alert and oriented x2. She follows my commands. She has some residual weakness in the right upper extremity. She is 4/5 and the rest of extremities 5/5. PSYCHIATRIC: Psychiatri c evaluation did not reveal any suicidal ideations or homicidal ideations. LABORATORY: Labs showed a normal CBC. Sodium of 134, potassium 4.6, chloride 100, CO2 21, BUN 14, c reatinine 0.93, glucose 68. Lactic acid was 4.2 with IV fluids, it went down to 2.0. Troponin 0.195 , 0.178 and 0.190, BNP is 1027, which is somewhat elevated, but it is significantly lower than what i t was in December at 7000. Albumin 3.8. The rest of chemistry within normal limits. Urinalysis hugo wed some small amount of blood, moderate amount of leukocyte esterase and 21-50 WBCs in high power fi eld, 0-3 hyaline casts none, bacteria none, and 4-6 RBCs. IMAGES: Chest x-ray was done in the emergency room and it showed stable cardiomegaly and chronic trista g changes with some evidence of left-sided loop recorder overlying the left chest wall. IMPRESSION: 1. Fever and chills with suspicion of infectious etiology with suspected urinalysis findings for uri nary tract infection. 2. Elevated lactic acid, improved with IV fluids down to 2.0 this morning, most likely related to in fection. 3. Somewhat elevated troponins at 0.195, 0.178 and 0.190 with EKG changes suggestive of some ischemi c process with inverted T waves. 4. History of sleep apnea. 5. Hyperlipidemia. 6. Hypertension. 7. History of congestive heart failure with diastolic dysfunction and history of pulmonary hypertens ion. PLAN: Admission to the telemetry floor. Condition is fair. Activity: Bed rest and bathroom privil eges with assistance. IV Hep-Lock. Continue Rocephin. She received 2 grams in the emergency room l ast night. She will continue on 1 gram q.24 IV piggyback. We will get urine culture by tomorrow. Leonie dudley have preliminary blood cultures negative. We will continue her home medications. We will obtain t he chest x-ray tomorrow to make sure there is nothing developing in her lungs as the source of infect ion. She is on Plavix, so we will just use SCDs for DVT prophylaxis.
[2018-09-15 13:20] VITALS: BMI 26.5
--- NOTE | 2018-09-15 18:19 | CON ---
DATE OF CONSULTATION: 09/15/2018 REASON FOR CONSULTATION: Hypertension, mildly elevated troponins. HISTORY OF PRESENT ILLNESS: Ms. Martinez is a very pleasant 88-year-old white female whom I had been following for some time now who comes into the hospital for inability to check her blood pressure at home. She has a history of pulmonary fibrosis and came to see me originally because of CT of the [facility] that she had that showed a pericardial effusion. When I saw her, she was asymptomatic from the pe ricardial standpoint and she was not in tamponade, so we decided to watch this conservatively, and we did echos every 3 months from beginning and her effusion did not really change. Actually most recen tly about a few weeks ago, she had a repeat echocardiogram that showed that her fluid was the smalles t that it has ever been almost gone still there, but significantly better. Family is very involved w ith her care of her daughter, takes very good care of her. Daughter noted that her mother was shakin g, but did not feel cold. Mentioned she might have had chills and she tried to check her blood press ure concerned about situation and could not get a number so secondary to this, she decided to bring h er in. Here, she was found to have a fever and eventually found to have possibly a urinary tract inf ection and started on antibiotics and is already feeling much better. She denies any chest pain, tig htness, pressure, no shortness of breath. Her breathing has actually been at baseline. PAST MEDICAL HISTORY: 1. Hypertension. 2. Hyperlipidemia. 3. Pulmonary fibrosis. 4. 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 5. History of diastolic heart failure. 6. Pulmonary hypertension. 7. Right carotid aneurysm. 8. Obstructive sleep apnea. 9. History of UTIs in the past. 10. Chronic pericardial effusion. PAST SURGICAL HISTORY: Inguinal hernia repair. OUTPATIENT MEDICATIONS: 1. Aspirin 81 a day. 2. Lasix 40 mg. 3. Metoprolol 25 mg twice a day. 4. Losartan 50 mg a day. 5. Donepezil. 6. Melatonin. 7. Cranberry pills. 8. Potassium chloride 40 mEq twice a day. 9. Plavix 75 mg a day. 10. Famotidine 20 mg twice a daily. 11. Prednisone 5 mg b.i.d. 12. Crestor 10 mg a day. 13. Prolia every 6 months. ALLERGIES: No known drug allergies. SOCIAL HISTORY: No alcohol, tobacco or drugs. FAMILY HISTORY: Noncontributory. REVIEW OF SYSTEMS: A 12-point review of systems was done and it is also negative as stated in histor y of present illness. PHYSICAL EXAMINATION: VITAL SIGNS: Temperature 97.9, pulse 72, respiration rate 18, satting 94% on room air, blood pressur e 122/59. GENERAL: Awake, alert and oriented x3, in no distress. HEENT: Normocephalic, atraumatic. NECK: Supple. LUNGS: Clear. CARDIOVASCULAR: S1, S2, no S3, S4, no murmurs. There is grade 2/6 systolic murmur at left upper kiana rnal border. ABDOMEN: Soft with positive bowel sounds. EXTREMITIES: No edema. SKIN: Warm and dry. LABORATORY DATA: Laboratory work was reviewed. CBC with a white count of 5.5, hemoglobin 14, hemato crit 45, platelet count of 166. Chemistries unremarkable except for sodium 134. Lactic acid was 4.2 , magnesium 2.1. Troponin was 0.19 and 0.17, then 0.19. BNP was 1027. UA with small blood, moderat e leukocyte esterase and 21-50 white cells. Blood cultures are negative so far. ASSESSMENT AND PLAN: 1. Fever and chills. 2. Hypertension, resolved. 3. Chronic pulmonary fibrosis. 4. Chronic pulmonary hypertension. 5. Elevated troponins, likely from infectious process versus just pulmonary hypertension causing rig ht-sided elevated pressures, which can cause a troponin leak. PLAN: 1. Continue IV antibiotics per primary team. 2. I do not think she needs to be diuresed at that time, I think she is close to being euvolemic. T his is very similar to what she looks like on every time we have seen in the office. 3. We will get an echocardiogram to make sure that her effusion is not getting any worse and her LV function remains the same. Thank you for allowing us to participate in the care of your patient. We will follow.
[2018-09-15] MEDS ORDERED: Aspirin 81 mg Enteric Coated Tablet PO SCH (21:00)
[2018-09-15] MEDS ORDERED: Donepezil HCl 5 MG TAB PO SCH (21:00)
[2018-09-15] MEDS ORDERED: cefTRIAXone\\ROCEPHIN 1 GM in Sodium Chloride 0.9% 100 ML IVPB SCH (21:00)
[2018-09-15] MEDS ORDERED: Rosuvastatin 10 MG TAB PO SCH (21:00)
[2018-09-15] MEDS ORDERED: Acetaminophen 325 MG TAB PO PRN (22:16)
[2018-09-15] MEDS: Famotidine 20 MG TAB PO SCH (22:43)
[2018-09-15] MEDS: Metoprolol Tartrate 25 MG TAB PO SCH (22:43)
[2018-09-16 06:16] LABS: Lactic Acid 0.7 mmol/L (0.5-2.2)
[2018-09-16 06:29] LABS: #Lymphocytes 0.8 thou/uL (1.20-3.40); #Monocytes 0.3 thou/uL (0.11-0.59); #Neutrophils 2.6 thou/uL (1.40-6.50); %Basophils 0.3 % (0.0-1.0); %Eosinophils 0.7 % (0.0-10.0); %Lymphocytes 21.5 % (21.0-51.0); %Monocytes 8.6 % (0.0-10.0); Hemoglobin 12.7 g/dL (12.0-16.0); Mean Corpuscular HGB CONC 33.4 g/dL (32.0-36.0); Mean Corpuscular Hemoglobin 30.6 pg (27.0-31.0); Mean Corpuscular Volume 91.5 fL (78.0-98.0); Platelet Count 109 thou/uL (130-400); RBC Distribution Width 13.6 % (11.5-14.5); Red Blood Cell (RBC) Count 4.16 mill/uL (4.20-5.40); White Blood Cell (WBC) Count 3.7 thou/uL (4.8-10.8)
[2018-09-16 07:05] LABS: Anion Gap 10 mmol/L (10-20); BUN (Urea Nitrogen) 12 mg/dL (9.8-20.1); Calc. Creatinine Clearance 47 mL/min (70-130); Calcium 8.4 mg/dL (7.8-10.44); Carbon Dioxide 22 mmol/L (23-31); Chloride 103 mmol/L (98-107); Estimated GFR-MDRD 70; Glucose 76 mg/dL (83-110); Sodium 131 mmol/L (136-145)
[2018-09-16] MEDS: Metoprolol Tartrate 25 MG TAB PO SCH (08:57)
[2018-09-16] MEDS ORDERED: Furosemide 20 MG TAB PO SCH (09:00)
[2018-09-16] MEDS ORDERED: Clopidogrel Bisulfate 75 MG TAB PO SCH (09:00)
[2018-09-16] MEDS ORDERED: Losartan 25 MG TAB PO PRN (09:00)
[2018-09-16] MEDS ORDERED: CRANBERRY EXTRACT 4200 MG PO SCH (09:00)
[2018-09-16] MEDS ORDERED: predniSONE 5 MG TAB PO SCH (09:00)
[2018-09-16] MEDS: Famotidine 20 MG TAB PO SCH (09:01)
--- NOTE | 2018-09-16 09:10 | RAD ---
PORTABLE CHEST 1 VIEW: Date: 09/16/18 Time: 0740 hours HISTORY: Fever. FINDINGS/IMPRESSION: Comparison made with exam of 09/14/18. The heart size is enlarged. There is mild prominence of the pulmonary vascularity. No lobar consolida tion, pneumothoraces, or large effusions are seen. POS: [facility]
[2018-09-16] MEDS ORDERED: Doxycycline 100 MG CAP PO SCH ×2 (11:00→21:00)
[2018-09-16 16:42] VITALS: BP 118/59; TEMP 98.1
--- NOTE | 2018-09-17 03:49 | DIS ---
DATE OF ADMISSION: 09/14/2018 DATE OF DISCHARGE: 09/16/2018 FINAL DIAGNOSES: 1. Urinary tract infection with Staphylococcus epidermidis. 2. History of congestive heart failure with diastolic dysfunction. 3. History of pulmonary hypertension. 4. Hypertension. 5. Pulmonary fibrosis. 6. History of sleep apnea. 7. Hyperlipidemia. OCCUPATIONAL THERAPY CO DIRECTOR: Dr. Keita, Cardiology Service. HOSPITAL COURSE: The patient is an 88-year-old female who was admitted to the hospital aft er her daughter who takes her blood pressure daily, was not able to get any readings of her mother's blood pressure and noticed that she was very shaky and trembling when she came to check her blood pre ssure, so the patient was taken to the emergency room and was evaluated and because of a temperature elevation, decision was made about further evaluation of her condition in the hospital. At the time of evaluation, her sodium was 134, potassium 4.6, chloride 100, CO2 of 21, BUN 14, creatinine 0.93. Lactic acid was 4.2, troponin was 0.195, 0.178, and 0.190, BNP was 1027. Urinalysis showed small yolette unt of blood, moderate amount of leukocyte esterase and 21-50 wbc's in high power field, 0-3 hyaline cast, no bacteria, and 4-6 rbc's. Chest x-ray showed cardiomegaly, chronic lung changes with some ev idence of left-sided loop recorder overlying the left chest wall. The patient got admitted to the [facility]. Cultures were done. She was placed on Rocephin which was continued. She was continued on h er other home medications. She was seen by Dr. Keita, who did not recommend any additional manageme nt. He agreed with IV antibiotics and echocardiogram was done, which is still pending. chest x-ray the next day, did not show any further problems. Her heart was enlarged. There was some mild prominence of the pulmonary vascularity, but there was no any lobar consolidation or significant pleu ral effusion. Her temperature was controlled and she did well without any more trembling or shakines s. Microbiology came back positive for Staphylococcus epidermidis and urine culture. Blood cultures came back negative x2 and the patient is discharged home in good condition. Temperature is 97.4, pu lse is 64, respiratory rate is 18, and O2 saturations 95 on room air. Her blood pressure is 105/62. She has seen and evaluated before she is discharged, we will plan to obtain PT and OT with a [facility] nursing for the outpatient treatment. She was started on doxycycline 100 mg twice a day that is the only basically oral antibiotic she can take because medications. She will cont inue all her medications that she was taking before plus 7 days of doxycycline for her UTI and she wi ll follow up with Dr. Ibanez who is her primary care physician in 1 week. DISCHARGE DISPOSITION: Home. ACTIVITY: As tolerated with assistance. DIET: Low salt, heart-healthy diet and patient seen and examined before she is discharged and the di scharge time is more than 30 minutes.
== END 2018-09-16 17:35 | disposition home health service (06) | DRG 872 ==
LOC: ERS 19:06 → 2NO 22:12
PROVIDERS: ADMIT Internal Medicine; ATTEND Internal Medicine
DX: A41.9 Sepsis, unspecified organism (principal); N39.0 Urinary tract infection, site not specified; I31.3 Pericardial effusion (noninflammatory); I50.32 Chronic diastolic (congestive) heart failure; I11.0 Hypertensive heart disease with heart failure; E78.5 Hyperlipidemia, unspecified; I69.393 Ataxia following cerebral infarction; I72.0 Aneurysm of carotid artery; J84.10 Pulmonary fibrosis, unspecified; I27.20 Pulmonary hypertension, unspecified; B95.7 Other staphylococcus as the cause of diseases classified elsewhere; G47.33 Obstructive sleep apnea (adult) (pediatric); R74.8 Abnormal levels of other serum enzymes; Z79.02 Long term (current) use of antithrombotics/antiplatelets; Z79.82 Long term (current) use of aspirin; Z79.52 Long term (current) use of systemic steroids
CPT/HCPCS: 36415; 71045; 80048; 80053; 81003; 81015; 82550; 82553; 83605; 83690; 83735; 83880; 84484; 85025; 87040; 87077; 87086; 87186; 93005; 93306; A4353; J0696; J7050